=== PATIENT | female | born 1965 | race Caucasian/White ===

== ENCOUNTER 2019-07-18 08:56 | Outpatient (RCR) | payer BC, SELFPAY ==
[2019-07-18 09:34] LABS: Basophils Absolute Auto 0.1 K/mm3 (0.0-0.1); Basophils Percent Auto 0.8 % (0.2-1.2); Eosinophils Absolute Auto 0.3 K/mm3 (0-0.3); Eosinophils Percent Auto 3.6 % (0-4.4); Hematocrit 30.8 % (37.0-47.0); Hemoglobin 10.8 g/dL (12.0-15.0); Immature Granulocyte Absolute 0.04 K/mm3 (0.00-0.031); Immature Granulocyte Percent A 0.5 % (0-0.5); Lymphocytes Absolute Auto 3.13 K/mm3 (0.9-3.2); Lymphocytes Percent Auto 36.7 % (18.3-44.2); Mean Corpuscular HGB Conc 35.1 g/dl (32-36); Mean Corpuscular Hemoglobin 35.5 pg (26-34); Mean Corpuscular Volume 101.3 fl (80-100); Mean Platelet Volume 8.7 fl (7.4-10.4); Monocytes Absolute Auto 0.8 K/mm3 (0.1-0.6); Monocytes Percent Auto 9.7 % (2.6-8.5); Neutrophils Absolute Auto 4.2 K/mm3 (1.3-6.7); Neutrophils Percent Auto 48.7 % (45.5-73.1); Platelet Count Result 251 k/mm3 (150-375); Red Blood Count 3.04 M/mm3 (4.2-5.4); White Blood Count 8.5 K/mm3 (4.5-10.0)
[2019-07-18 13:11] LABS: Alanine Aminotransferase 17 U/L (4-35); Albumin Level 4.1 g/dL (3.5-5.1); Alkaline Phosphatase 49 U/L (38-126); Aspartate Amino Transferase 23 U/L (14-36); Bilirubin,Total 0.2 mg/dL (0.2-1.3); Blood Urea Nitrogen 39 mg/dL (7-17); Calcium 9.4 mg/dL (8.4-10.2); Carbon Dioxide 21 mmol/L (22-30); Chloride 102 mmol/L (98-107); Estimated Glomerular Filt Rate 34; Glucose 93 mg/dL (65-105); Potassium 4.2 mmol/L (3.4-5.0); Sodium 137 mmol/L (137-145)
[2019-07-20 07:23] LABS: CA 27.29 129 U/mL (<38)
== END 2019-10-16 23:59 | disposition home or self-care (01) ==
LOC: ANHLAB 08:56
PROVIDERS: PCP Family Medicine; Visit Provider Internal Medicine Hematology & Oncology
DX: C50.912 Malignant neoplasm of unspecified site of left female breast (principal); Z17.0 Estrogen receptor positive status [ER+]
CPT/HCPCS: 36415; 80053; 85025; 86300

== ENCOUNTER 2019-11-26 05:05 | Day surgery (SDC) | payer BC, SELFPAY ==
[2019-11-26] VITALS (17 sets, daily range): BP systolic 102–147; BP diastolic 49–95; PULSE 52–73; RESP 13–22; TEMP 36.3–36.5; O2SAT 93–100; BMI 31.0
[2019-11-26 09:09] LABS: Basophils Absolute Auto 0.1 K/mm3 (0.0-0.1); Basophils Percent Auto 1.5 % (0.2-1.2); Eosinophils Absolute Auto 0.1 K/mm3 (0-0.3); Eosinophils Percent Auto 2.9 % (0-4.4); Hematocrit 30.1 % (37.0-47.0); Hemoglobin 10.4 g/dL (12.0-15.0); Immature Granulocyte Absolute 0.03 K/mm3 (0.00-0.031); Immature Granulocyte Percent A 0.7 % (0-0.5); Lymphocytes Absolute Auto 1.97 K/mm3 (0.9-3.2); Lymphocytes Percent Auto 43.3 % (18.3-44.2); Mean Corpuscular HGB Conc 34.6 g/dl (32-36); Mean Corpuscular Hemoglobin 37.4 pg (26-34); Mean Corpuscular Volume 108.3 fl (80-100); Mean Platelet Volume 9.2 fl (7.4-10.4); Monocytes Absolute Auto 0.4 K/mm3 (0.1-0.6); Monocytes Percent Auto 7.7 % (2.6-8.5); Neutrophils Percent Auto 43.9 % (45.5-73.1); Platelet Count Result 287 k/mm3 (150-375); Red Blood Count 2.78 M/mm3 (4.2-5.4); Red Cell Distribution Width 14.3 % (11.5-14.5); White Blood Count 4.6 K/mm3 (4.5-10.0)
[2019-11-26 09:20] LABS: Blood Urea Nitrogen 29 mg/dL (7-17); Calcium 9.5 mg/dL (8.4-10.2); Carbon Dioxide 27 mmol/L (22-30); Chloride 104 mmol/L (98-107); Estimated CRCL calculation 37 ml/min; Estimated Glomerular Filt Rate 36; Glucose 110 mg/dL (65-105); Potassium 4.4 mmol/L (3.4-5.0); Sodium 136 mmol/L (137-145)
[2019-11-26 09:25] LABS: Anisocytosis 1+ (NORMAL); Ovalocytes 1+ (NORMAL); Platelet Estimate Adequate (Adequate)
--- NOTE | 2019-11-26 10:37 | WPDMODSED ---
Moderate Sedation Note-Pt Data Patient Data Diagnosis: Aortic valve stenosis Coronary artery disease with previous interventional revascularization of LAD and circumflex in 2009 Congestive heart failure with left ventricular systolic dysfunction Breast cancer Present Complaint: Shortness of breath Procedure to be performed/Plan: Right and left heart catheterization Allergies Allergy/AdvReac Type Severity Reaction Status Date / Time Sulfa (Sulfonamide Allergy Mild RASH Verified 12/14/18 11:05 Antibiotics) sulfamethoxazole Allergy Mild RASH Verified 12/14/18 11:05 sulfamethizole Allergy Unknown Verified 05/30/17 14:39 trimethoprim Allergy Unknown Verified 05/30/17 14:39 Home Medications Medication Instructions Recorded Confirmed Type aspirin 81 mg PO DAILY 06/29/19 11/26/19 History atorvastatin 20 mg PO DAILY 06/29/19 11/26/19 History carvedilol 6.25 mg PO Q12H 06/29/19 11/26/19 History clopidogrel [Plavix] 75 mg PO DAILY 06/29/19 11/26/19 History furosemide 20 mg PO BID 06/29/19 11/26/19 History letrozole 2.5 mg PO QAM 06/29/19 11/26/19 History lisinopril 10 mg PO DAILY 06/29/19 11/26/19 History potassium chloride 20 meq PO BID 06/29/19 11/26/19 History sertraline 50 mg PO DAILY 06/29/19 11/26/19 History palbociclib [Ibrance] 125 mg PO DAILY 09/18/19 11/26/19 History Current Medications: Active Medications Sodium Chloride (Normal Saline Iv) 500 mls @ 100 mls/hr IV CONT .Q5H KONG Sedation/Anesthesia: No previous sedation/anesthesia problems (including family history). [facility] Social History Social History Smoking status: Former smoker Second hand tobacco smoke exposure: No Smoking end date: 09/12/90 Alcohol intake: never Gender identity (if verbalized by the patient): Female Mod Sed Physical Exam Physical Exam Pre Procedural Exam: Normal: Neck, Throat, Airway, Lungs, Heart Size, Heart Rate, Heart Rhythm, Neuro Exam and Extremities and Variation: Appearance (Ill-appearing white female no apparent distress) Hours since solid foods: 14 Hours since liquid intake: 14 Internal Medicine - PN: Obj Da Vital Signs Vital Signs: Vital Signs - 24 hr 11/26/19 09:21 Temperature 36.3 C L Pulse Rate 52 L Respiratory Rate 18 Blood Pressure 125/68 Pulse Oximetry 97 Meds/Results Medications: Active Medications Generic Name Dose Route Start Last Admin Trade Name Kamari PRN Reason Stop Dose Admin Sodium Chloride 500 mls @ 100 mls/hr 11/26/19 06:00 Normal Saline Iv IV CONT .Q5H KONG Labs CBC & Chem 7: 11/26/19 08:47 11/26/19 08:47 Labs: Laboratory Results - last 24 hr 11/26/19 11/26/19 08:47 08:47 WBC 4.6 RBC 2.78 L Hgb 10.4 L Hct 30.1 L MCV 108.3 H MCH 37.4 H MCHC 34.6 RDW 14.3 Plt Count 287 D MPV 9.2 Immature Gran % (Auto) 0.7 H Neut % (Auto) 43.9 L Lymph % (Auto) 43.3 [place] % (Auto) 7.7 Eos % (Auto) 2.9 Baso % (Auto) 1.5 H Lymph # (Auto) 1.97 [place] # (Auto) 0.4 Eos # (Auto) 0.1 Baso # (Auto) 0.1 Abs Immat Gran (auto) 0.03 Absolute Neuts (auto) 2.0 Absolute Nucleated RBC 0.0 Nucleated RBC % 0.0 Platelet Estimate Adequate Anisocytosis 1+ Ovalocytes 1+ Sodium 136 L Potassium 4.4 Chloride 104 Carbon Dioxide 27 BUN 29 H Creatinine 1.50 H Estim Creat Clear Calc 37 Estimated GFR 36 L Glucose 110 H Calcium 9.5 ASA Classification/Sedation ASA Classification/Sedation ASA Class: II Emergent: No Risks: Risks, benefits and alternatives explained and patient/family accepted plan for sedation. Patient re-evaluated immediately prior to sedation.
--- NOTE | 2019-11-26 11:47 | WPDCARDPROC ---
Cardiac Cath Procedure Note Date of procedure:: 11/26/19 Performing physician:: Sammy Mckeon MD Indication:: 53-year-old patient with coronary artery disease, aortic valve stenosis and increasing symptoms of OLSON. Echocardiogram demonstrates severe aortic valve stenosis and recent admission with CHF and evidence of decline in LV systolic function. Unfortunate comorbidity of metastatic breast cancer Brief clinical history:: 3-year-old patient as detailed above with previous PCI to the mid LAD and proximal circumflex. Patient has been followed clinically in the office and has been now reporting symptoms of OLSON and has echocardiographic evidence stenosis as well as reduced left ventricular systolic function. Procedure Procedure performed:: Right and left heart catheterization Sedation/Medication given:: fentanyl 50 mg Versed 2 mg case start time 11:03 a.m. case end time 11:41 a.m. sedation provided by Diony Nielson Rn, trained observer Access site:: right femoral artery, right femoral vein Estimated blood loss:: 20-30 cc Procedure note:: patient brought to the cardiac catheterization lab in postabsorptive state where the femoral triangle was prepped and draped in the usual fashion. Anesthesia was provided with 1% lidocaine infiltrated locally. Using the modified Seldinger technique a 7 Greenlandic sheath was placed into the femoral vein and a 6 Greenlandic sheath into the femoral artery. Following this right heart catheterization was carried out. A balloon tip Summit-Dinesh catheter was used demonstrate right-sided hemodynamics and to sample a AV O2 difference. Thermodilution cardiac outputs were also sampled. Following this the Summit-Dinesh catheter was removed. A double 6 Greenlandic angle pigtail catheter was placed into the arterial circulation into the ascending aorta. Both lumens were connected to pressure transducer is flushed carefully, both lumens were flushed carefully and simultaneouspressures were recorded both the vent found to be identical. a straight wire was then placed into the distal lumen and used to probe the stenotic aortic valve the left ventricle was entered and the catheter was placed over the wire into the body of the LV. The lumens were then reflushed and we zeroed and Simultaneousleft ventricle/ central aortic pressures were demonstrated and aortic valve area was calculated. following this the same catheter was used to inject the left ventriculogram in the WEBB projection. A pullback was then demonstrated across the stenotic aortic valve. The pigtail catheter was then removed. Coronary angiography was then performed using standard 5 Greenlandic FL4 and JR4 diagnostic coronary catheters. Following this procedure was terminated angiogram was done of the femoral artery through the sheath after which it was determined that the sheath will be removed manually with manual pressure in the holding area. She left the cleaning laborer with no evidence of any procedural complications and no sign of a groin hematoma. Findings:: Hemodynamics: Right atrial pressure 3 mmHg right ventricle RV 34/0 end-diastolic2. Pulmonary artery 35/4. wedge pressure 10. left ventricle 190 over 3 end-diastolic pressure 12. Central aorta 152 over 62. Mean aortic valve gradient is 35 point mmHg valve area 0.89 cm2 cardiac output 5.27 liters/minute giving an index of 2.96 the left ventricle is modestly enlarged there is moderate global systolic dysfunction identified global ejection fraction appears to be 35-40% by visual estimation no apparent regional wall motion abnormalities the left main coronary artery is medium in caliber and is nicely patent the LAD is medium to small caliber vessel going down to the apex. There is a stent in the midportion of the LAD in in this segment there is 99% diffuse stenosis. Despite this there is angiographically MIKEY 3 flow in the vessel. Circumflex is a medium caliber vessel with visible stent material in the proximal segmen
--- NOTE | 2019-11-26 12:16 | SUR.PHASEII ---
[id number] Patient returns to [facility] room [address] post R&LHC with Dr. Mckeon. at bedside, instructed on bedrest, and restrictions. 6 Fr sheath remains in RFA, 7 Fr sheath remains in RFV. No bleeding or hematoma noted, will continue to monitor.
--- NOTE | 2019-11-26 20:32 | SUR.PHASEII ---
11/26/19: 2005: PATIENT DRESSED SELF WITHOUT ASSISTANCE. RT GROIN SITE IS CLEAN AND DRY. NO HEMATOMA OR BLEEDING NOTED. PULSES PALPATED GOOD.
--- NOTE | 2019-11-26 20:35 | SUR.PHASEII ---
11/26/19: 2009: DETAILED DISCHARGE INSTRUCTIONS GIVEN TO PATIENT. PATIENT VERBALIZED AN UNDERSTANDING OF THESE INSTRUCTIONS.
--- NOTE | 2019-11-26 20:36 | SUR.PHASEII ---
11/26/19: 2015: PATIENT DISCHARGED TO HOME VIA WHEELCHAIR.
== END 2019-11-26 20:15 | disposition home or self-care (01) ==
PROVIDERS: PCP Family Medicine; Visit Provider Specialist
PROC: 4A023N8 Measurement of Cardiac Sampling and Pressure, Bilateral, Percutaneous Approach (ICD-10-PCS; CPT 93453; principal; 2019-11-26 10:00)
DX: I25.10 Atherosclerotic heart disease of native coronary artery without angina pectoris (principal); I35.0 Nonrheumatic aortic (valve) stenosis; I50.22 Chronic systolic (congestive) heart failure; R93.1 Abnormal findings on diagnostic imaging of heart and coronary circulation; C50.919 Malignant neoplasm of unspecified site of unspecified female breast; Z95.5 Presence of coronary angioplasty implant and graft; Z87.891 Personal history of nicotine dependence
CPT/HCPCS: 36415; 80048; 85025; 93460; C1769; C1887; C1894; J1644; J2250; J3010; J7040

== ENCOUNTER 2020-01-21 07:53 | Outpatient (CLI) | payer BC, SELFPAY ==
--- NOTE | ~2020-01-21 | NM_ITS ---
EXAMINATION: NM bone scan whole body DATE: 01/21/2020 11:10 INDICATION: Malignant neoplasm of left breast in female, estrogen receptor positive. TECHNIQUE: 25.8 mCi Tc-99m HDP was administered intravenously. Delayed whole-body scintigrams were o btained. COMPARISON: Bone scan 09/17/2019, chest CT 01/21/2020 FINDINGS: There is increased activity in the sternum and head of right clavicle correlating with scle rotic lesions by CT. There is joint-centered increased activity in the right knee without radiographi c comparison, likely osteoarthritis. IMPRESSION: 1. Unchanged distribution of increased activity in the sternum and head of right clavicle correlating with sclerotic lesions by CT, consistent with metastatic disease. Reviewed, dictated and finalized at location A. IMPRESSION: 1. Unchanged distribution of increased activity in the sternum and head of righ t clavicle correlating with sclerotic lesions by CT, consistent with metastatic disease.
--- NOTE | ~2020-01-21 | CT_ITS ---
EXAMINATION:CT chest w con DATE: 01/21/2020 08:50 INDICATION: Malignant neoplasm of left breast in female, estrogen receptor positive. TECHNIQUE: Computed tomography (CT) of the chest was performed with 75 mL Omnipaque 350 intravenous c ontrast. Automated exposure control and iterative reconstruction technique were employed. The dose-le ngth product (DLP) was 249.92 mGy-cm. COMPARISON: Chest CT 09/17/2019, 12/14/2018 FINDINGS: There are widespread peripheral reticular opacities and groundglass opacities in the lungs with architectural distortion. No bronchiectasis or honeycombing. There is a 5 mm nodule in left lowe r lobe, stable from 12/14/2018. No pleural effusion. The heart size is normal. There are coronary arter y calcifications. There are calcifications of the aortic valve. No pericardial effusion. A right para tracheal node measures 24 x 12 mm, stable from 09/17/2019 and improved from 12/14/2018. There are bilater al mastectomies. There are sclerotic lesions in the sternum, head of right clavicle, and T7 and T11 v ertebral bodies. IMPRESSION: 1. Stable bone lesions and enlarged mediastinal lymph node, consistent with metastatic disease. 2. Stable pulmonary nodule, which may be granulomatous disease or metastatic disease. 3. Chronic interstitial lung disease in a pattern of nonspecific interstitial pneumonia (NSIP). Reviewed, dictated and finalized at location A. IMPRESSION: 1. Stable bone lesions and enlarged mediastinal lymph node, consistent with met astatic disease. 2. Stable pulmonary nodule, which may be granulomatous disease or metastatic di sease. 3. Chronic interstitial lung disease in a pattern of nonspecific interstitial p neumonia (NSIP).
[2020-01-21 08:25] LABS: Estimated Glomerular Filt Rate 36
== END 2020-01-21 07:54 | disposition home or self-care (01) ==
PROVIDERS: PCP Family Medicine; Visit Provider Internal Medicine Hematology & Oncology
DX: C50.912 Malignant neoplasm of unspecified site of left female breast (principal); Z17.0 Estrogen receptor positive status [ER+]; R93.7 Abnormal findings on diagnostic imaging of other parts of musculoskeletal system; R91.1 Solitary pulmonary nodule; J84.9 Interstitial pulmonary disease, unspecified
CPT/HCPCS: 36415; 71260; 78306; A9561; Q9967

== ENCOUNTER 2020-06-18 10:58 | Outpatient (CLI) | payer BC, SELFPAY ==
--- NOTE | ~2020-06-18 | NM_ITS ---
EXAMINATION: NM bone scan whole body DATE: 06/18/2020 14:19 INDICATION: Malignant neoplasm of the left breast. TECHNIQUE: 22.7 mCi Tc-99m HDP was administered intravenously. Delayed whole-body scintigrams were o btained. COMPARISON: Bone scan dated 01/21/2020 and 05/01/[address] chest dated 06/18/2020 FINDINGS: Again seen is increased activity in the sternum, manubrium and at the medial head of the right clavic le with corresponding sclerotic lesions on CT. Unchanged focus of increased uptake at the right maxil la which can be seen dating back to earlier bone scan dated 05/01/2019. New tiny focus of mild increas ed uptake anteriorly at the L4 vertebral body without evident correlate on PET/CT dated 01/04/2019. No more recent cross sectional imaging for comparison. Unchanged likely degenerative joint centered upt gerard at the right knee and at the radial side of the left wrist. IMPRESSION: 1. New tiny focus of mild increased uptake at the L4 vertebral body raising suspicion for metastatic disease. 2. No interval change in regions of likely metastatic increased bone uptake with associated sclerosis on CT located at the manubrium, sternum and medial head of the right clavicle. 3. Unchanged small focus of increased uptake at the right maxilla which could be related either denta l disease or metastatic disease. Reviewed, dictated and finalized at location A. IMPRESSION: 1. New tiny focus of mild increased uptake at the L4 vertebral body raising zabrina picion for metastatic disease. 2. No interval change in regions of likely metastatic increased bone uptake wit h associated sclerosis on CT located at the manubrium, sternum and medial head of the right clavicle. 3. Unchanged small focus of increased uptake at the right maxilla which could b e related either dental disease or metastatic disease.
--- NOTE | ~2020-06-18 | CT_ITS ---
EXAMINATION: CT chest w con DATE: 06/18/2020 11:38 INDICATION: Left breast cancer TECHNIQUE: Transaxial computed tomographic images of the chest were obtained after the administration of 75 cc of Omnipaque 350 intravenous contrast. The dose-length product (DLP) was 195.88 mGy-cm. Ite rative reconstruction was used. COMPARISON: 01/21/2020 FINDINGS: There is a stable 5 mm nodule in the left lower lobe. There are stable subpleural reticular and groundglass opacities in the lungs. No superimposed acute airspace opacities are identified. The re is no pleural effusion or pneumothorax. The heart size is normal. There are changes of bilateral m astectomy and left axillary lymph node dissection. A 2.4 x 1.3 cm right paratracheal lymph node is un changed in size. No new thoracic lymphadenopathy is identified. Sclerotic metastases are noted in the sternum, the head of the right clavicle, and in the T7, T11, and L1 vertebral bodies. There are torrez ges of interval endoluminal aortic valve repair. IMPRESSION: 1. Stable metastatic bone lesions and enlarged mediastinal lymph node. 2. Chronic interstitial lung disease in a pattern of nonspecific interstitial pneumonia (NSIP). 3. Stable left lower lobe nodule, granulomatous disease versus metastatic disease. Reviewed, dictated and finalized at location A. IMPRESSION: 1. Stable metastatic bone lesions and enlarged mediastinal lymph node. 2. Chronic interstitial lung disease in a pattern of nonspecific interstitial p neumonia (NSIP). 3. Stable left lower lobe nodule, granulomatous disease versus metastatic disea se.
== END 2020-06-18 10:59 | disposition home or self-care (01) ==
PROVIDERS: PCP Family Medicine; Visit Provider Internal Medicine Hematology & Oncology
DX: C50.912 Malignant neoplasm of unspecified site of left female breast (principal); Z17.0 Estrogen receptor positive status [ER+]; J84.9 Interstitial pulmonary disease, unspecified; R91.1 Solitary pulmonary nodule
CPT/HCPCS: 71260; 78306; A9561; Q9967

== ENCOUNTER 2020-08-11 07:30 | Outpatient (RCR) | payer BC, SELFPAY ==
[2020-05-20 08:49] VITALS: PULSE 61
--- NOTE | 2020-05-27 13:43 | PCCPR ---
Covid exposure Britney called states she was explosed to covid at work. 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 She states she has wore the mask at all times. It is standard they get covid tested each week at the senior care. She thinks it will be a few days until she is aware of results. She is also asymptomatic. Explained if she is without symptoms and wears her mask the entire time she is here she may come back, unless she comes back positive.
== END 2020-08-11 18:56 | disposition home or self-care (01) ==
LOC: ANHCPREHAB 07:30
PROVIDERS: PCP Family Medicine
DX: Z95.2 Presence of prosthetic heart valve (principal)
CPT/HCPCS: 93798

== ENCOUNTER 2020-08-14 07:24 | Outpatient (CLI) | payer BC, SELFPAY ==
--- NOTE | ~2020-08-14 | NM_ITS ---
EXAMINATION: NM bone scan whole body DATE: 08/14/2020 10:23 INDICATION: Malignant neoplasm of left breast. TECHNIQUE: 25.7 mCi Tc-99m HDP was administered intravenously. Delayed whole-body scintigrams were o btained. COMPARISON: Chest CT 06/18/2020, bone scan 06/18/2020 FINDINGS: There is increased activity in the sternum and medial right clavicle with interval improvem ent correlating with sclerotic lesions by CT. Again seen are multiple small foci of increased activit y in the spine correlating with sclerotic lesions by CT. IMPRESSION: 1. Multiple bone lesions of increased activity with interval improvement, consistent with metastatic disease. Reviewed, dictated and finalized at location A. MBLY CLEANER IMPRESSION: 1. Multiple bone lesions of increased activity with interval improvement, consi stent with metastatic disease.
== END 2020-08-14 07:25 | disposition home or self-care (01) ==
PROVIDERS: PCP Family Medicine; Visit Provider Internal Medicine Hematology & Oncology
DX: C50.912 Malignant neoplasm of unspecified site of left female breast (principal); Z17.0 Estrogen receptor positive status [ER+]
CPT/HCPCS: 78306; A9561

== ENCOUNTER 2020-11-24 09:47 | Outpatient (CLI) | payer BC, SELFPAY ==
--- NOTE | ~2020-11-24 | CT_ITS ---
EXAMINATION: CT diagnostic chest w con EXAM DATE: 11/24/2020 10:34 INDICATION: Left-sided breast cancer. TECHNIQUE: Spiral CT of the chest following intravenous injection of 75 mL Omnipaque 350. Axial, cor onal and sagittal images were reviewed. Coronal maximum intensity pixel images of chest reviewed. Klaudia garcia dose-length product (DLP) for this examination was 253.34 mGy-cm. The exposure was tailored accor ding to patient size (auto mA exposure control), and iterative reconstruction (ASIR) was used as darrin tional dose reduction technique. Comparison is made to prior examination from 06/18/2020. FINDINGS: There is moderate amount of irregular septal thickening seen with peripheral bibasilar pred ominance and areas of groundglass opacity, with slight interval progression. This is consistent with Nonspecific Interstitial Pneumonitis (NSIP) pattern interstitial lung disease with many possible unde rlying etiologies including collagen vascular disease, medications/drugs, prior viral infection, hype rsensitivity pneumonitis, idiopathic etiologies. Mediastinal lymph nodes are stable or decreased in size, largest in the precarinal region measuring a bout 2.2 x 1.1 cm. There are surgical changes from left-sided mastectomy. Left basilar nodule measure s about 4 mm, unchanged and probably granuloma. Tracheobronchial tree is patent. There is no pneum othorax. There is mild cardiomegaly. There is aortic valve repair. No central pulmonary emboli. Up per abdomen is unremarkable. Sternum and manubrium completely sclerotic and several thoracic osteobla stic lesions are identified, are unchanged. IMPRESSION: 1. Moderate NSIP pattern interstitial lung disease, slight progression. 2. Stable mediastinal lymph nodes and left basilar nodule. 3. Stable osteoblastic disease. Reviewed, dictated and finalized at location A.
--- NOTE | ~2020-11-24 | NM_ITS ---
EXAMINATION: NM bone scan whole body DATE: 11/24/2020 12:34 INDICATION: Malignant neoplasm of the left breast TECHNIQUE: 23.6 mCi Tc-99m HDP was administered intravenously. Delayed whole-body scintigrams were o btained. COMPARISON: Bone scan dated 08/14/2020 and 05/01/[address] dated 11/24/2020 FINDINGS: Persistent mild increased uptake at the sternum, manubrium and medial head of the right clavicle with corresponding sclerosis on CT consistent with chronic treated metastatic disease. Persistent mild viviana int centered uptake at the lateral compartment of the right knee and at the radial aspect of the left carpus, likely degenerative osteoarthritis. Additional mild uptake at the right-sided facet joints i n the mid to upper cervical spine with corresponding facet osteoarthritis evident on brain MRI dated 01/04/2019. Unchanged small focus of mild increased uptake at the right maxilla likely related to dent al disease. IMPRESSION: 1. Stable appearance of mild uptake at the sternum, manubrium and medial head of the right clavicle w ith associated sclerosis on prior CT imaging consistent with chronic metastatic disease. Reviewed, dictated and finalized at location B. IMPRESSION: 1. Stable appearance of mild uptake at the sternum, manubrium and medial head o f the right clavicle with associated sclerosis on prior CT imaging consistent w ith chronic metastatic disease.
== END 2020-11-24 09:48 | disposition home or self-care (01) ==
PROVIDERS: PCP Family Medicine; Visit Provider Internal Medicine Hematology & Oncology
DX: C50.912 Malignant neoplasm of unspecified site of left female breast (principal); Z17.0 Estrogen receptor positive status [ER+]
CPT/HCPCS: 71260; 78306; A9561; Q9967

== ENCOUNTER 2021-04-14 09:14 | Outpatient (CLI) | payer BC, SELFPAY ==
--- NOTE | ~2021-04-14 | CT_ITS ---
EXAMINATION: CT diagnostic chest w con DATE: 04/14/2021 09:49 INDICATION: Metastatic breast cancer TECHNIQUE: Transaxial computed tomographic images of the chest were obtained after the administration of 75 cc of Omnipaque 350 intravenous contrast. The dose-length product (DLP) was 188.56 mGy-cm. Ite rative reconstruction was used. COMPARISON: 11/24/2020 FINDINGS: There is a stable 4 mm nodule of the left lower lobe. Subpleural reticular and groundglass opacities persist in both lungs without significant change. There is no pleural effusion or pneumotho rax. There is an unchanged right lower paratracheal lymph node measuring 2.3 x 1.1 cm. The heart size is normal. There are stable sclerotic osseous metastases of the sternum, head of the right clavicle, and in the T7 and T11 vertebral bodies. IMPRESSION: 1. Stable osseous metastatic disease and stable enlarged mediastinal lymph node. 2. Stable nodule of the left lower lobe. 3. Unchanged chronic interstitial lung disease in a pattern of nonspecific interstitial pneumonia (NS IP). Reviewed, dictated and finalized at location A. IMPRESSION: 1. Stable osseous metastatic disease and stable enlarged mediastinal lymph node . 2. Stable nodule of the left lower lobe. 3. Unchanged chronic interstitial lung disease in a pattern of nonspecific inte rstitial pneumonia (NSIP).
--- NOTE | ~2021-04-14 | NM_ITS ---
EXAMINATION: NM bone scan whole body DATE: 04/14/2021 13:54 INDICATION: Malignant neoplasm of left breast in female. TECHNIQUE: 22.4 mCi Tc-99m HDP was administered intravenously. Delayed whole-body scintigrams were o btained. COMPARISON: Chest CT 04/14/2021, Bone scan 11/24/2020 FINDINGS: There is increased activity in right knee and left wrist without radiographic comparison, l ikely osteoarthritis. There is increased activity in the sternum and head of right clavicle IMPRESSION: 1. Stable distribution of increased activity in the sternum and head of right clavicle correlating wi th sclerotic lesions by CT, consistent with metastatic disease. Reviewed, dictated and finalized at location A. IMPRESSION: 1. Stable distribution of increased activity in the sternum and head of right c lavicle correlating with sclerotic lesions by CT, consistent with metastatic di sease.
== END 2021-04-14 09:15 | disposition home or self-care (01) ==
LOC: ANHIMG 09:20
PROVIDERS: PCP Family Medicine; Visit Provider Internal Medicine Hematology & Oncology
DX: C50.912 Malignant neoplasm of unspecified site of left female breast (principal); Z17.0 Estrogen receptor positive status [ER+]; R91.8 Other nonspecific abnormal finding of lung field; J84.9 Interstitial pulmonary disease, unspecified
CPT/HCPCS: 71260; 78306; A9561; Q9967

== ENCOUNTER 2021-09-23 07:32 | Outpatient (CLI) | payer BC, SELFPAY ==
--- NOTE | ~2021-09-23 | NM_ITS ---
EXAMINATION: NM bone scan whole body DATE: 09/23/2021 12:34 INDICATION: Malignant neoplasm of left breast in female. TECHNIQUE: 24.2 mCi Tc-99m HDP was administered intravenously. Delayed whole-body scintigrams were o btained. COMPARISON: Chest CT 09/23/2021, 04/14/2021, bone scan 04/14/2021 FINDINGS: There is increased activity in the sternum and head of right clavicle. There is joint-cente red increased activity in the shoulders and knees, consistent with osteoarthritis. IMPRESSION: 1. Stable distribution of increased activity in the sternum and head of right clavicle correlating wi th sclerotic lesions by CT, consistent with metastatic disease. Reviewed, dictated and finalized at location B. LE GRADER IMPRESSION: 1. Stable distribution of increased activity in the sternum and head of right c lavicle correlating with sclerotic lesions by CT, consistent with metastatic di sease.
--- NOTE | ~2021-09-23 | CT_ITS ---
EXAMINATION: CT diagnostic chest w con EXAM DATE: 09/23/2021 08:21 INDICATION: Malignant Neoplasm Of Left Breast In Female . TECHNIQUE: Spiral CT of the chest following intravenous injection of 75 mL Omnipaque 350. Axial, cor onal and sagittal images of the chest were reviewed. Coronal maximum intensity pixel images of chest reviewed. The dose-length product (DLP) for this examination was 228.13 mGy-cm. The exposure was t ailored according to patient size (auto mA exposure control), and iterative reconstruction (ASIR) was used as additional dose reduction technique. Comparison is made to prior examination from 04/14/2021. FINDINGS: There is moderate irregular septal thickening seen with peripheral bibasilar predominance a nd areas of groundglass opacity. Likely chronic process, consistent with Nonspecific Interstitial P neumonitis (NSIP) pattern interstitial lung disease with many possible underlying etiologies includin g collagen vascular disease, medications/drugs, prior viral infection (COVID-19), hypersensitivity pn eumonitis, idiopathic etiologies. This is slightly more pronounced than on prior study. Left basilar 4 mm nodule reidentified on image 85, unchanged consistent with granuloma. There are no pleural or pericardial effusions. Tracheobronchial tree is patent. Precarinal lymph node is mildl y enlarged, but stable in size, as are the other smaller mediastinal lymph nodes. No central pulmonar y emboli. There is no pneumothorax. There is mild cardiomegaly. There is aortic valve replacement. Probable coronary artery stents. Upper abdomen is unremarkable. Sternal and manubrial osteoblast ic disease, several smaller rib, vertebral thoracic osseous metastatic lesions unchanged. Surgical ch anges from left mastectomy, left axillary lymph node dissection. IMPRESSION: 1. Stable precarinal lymphadenopathy. 2. Stable osteoblastic disease. 3. Moderate interstitial lung disease stable or minimal progression. 4. Left lower lobe granuloma. Reviewed, dictated and finalized at location A. [employer]
[2021-09-23 08:10] LABS: Estimated Glomerular Filt Rate 46
== END 2021-09-23 07:33 | disposition home or self-care (01) ==
PROVIDERS: PCP Family Medicine; Visit Provider Internal Medicine Hematology & Oncology
DX: C50.912 Malignant neoplasm of unspecified site of left female breast (principal); Z17.0 Estrogen receptor positive status [ER+]; M89.9 Disorder of bone, unspecified; R59.0 Localized enlarged lymph nodes; J84.9 Interstitial pulmonary disease, unspecified; J84.10 Pulmonary fibrosis, unspecified
CPT/HCPCS: 71260; 78306; A9561; Q9967

== ENCOUNTER 2022-01-25 08:27 | Outpatient (CLI) | payer BC, SELFPAY ==
--- NOTE | ~2022-01-25 | CT_ITS ---
EXAMINATION: CT diagnostic chest w con DATE: 01/25/2022 08:59 INDICATION: Malignant neoplasm of the left breast TECHNIQUE: Transaxial computed tomographic images of the chest were obtained after the administration of 75 cc of Omnipaque 300 intravenous contrast. The dose-length product (DLP) was 181.08 mGy-cm. Ite rative reconstruction was used. COMPARISON: 09/23/2021 FINDINGS: There is a stable 4 mm nodule of the left lower lobe. There is no pleural effusion or pneum othorax. Subpleural reticular and groundglass opacities persist throughout both lungs without signifi cant change. No honeycombing is identified. The heart size is normal. There is a stable enlarged prec arinal lymph node. Changes of endoluminal aortic valve repair are noted. There is stable osseous meta static disease. There are changes of bilateral mastectomy with left axillary lymph node dissection. IMPRESSION: 1. Stable osseous metastatic disease and stable large precarinal lymph node. 2. Chronic interstitial lung disease in a pattern of nonspecific interstitial pneumonia (NSIP), stabl e. Reviewed, dictated and finalized at location A. IMPRESSION: 1. Stable osseous metastatic disease and stable large precarinal lymph node. 2. Chronic interstitial lung disease in a pattern of nonspecific interstitial p neumonia (NSIP), stable.
--- NOTE | ~2022-01-25 | NM_ITS ---
EXAMINATION: NM bone scan whole body DATE: 01/25/2022 13:22 INDICATION: Left breast cancer TECHNIQUE: 24.7 mCi Tc-99m HDP was administered intravenously. Delayed whole-body scintigrams were o btained. COMPARISON: 09/23/2021 FINDINGS: Mild likely degenerative joint centered uptake at the bilateral knees and sacral joints, the radial a spect of the left carpus and at the sternomanubrial articulation. No suspicious foci of abnormal bone uptake to suggest metastatic disease. IMPRESSION: 1. No evident metastatic disease. Reviewed, dictated and finalized at location A.
[2022-01-25 08:52] LABS: Estimated Glomerular Filt Rate 36
== END 2022-01-25 08:28 | disposition home or self-care (01) ==
PROVIDERS: PCP Family Medicine; Visit Provider Internal Medicine Hematology & Oncology
DX: C50.912 Malignant neoplasm of unspecified site of left female breast (principal); C79.51 Secondary malignant neoplasm of bone; Z17.0 Estrogen receptor positive status [ER+]; J84.9 Interstitial pulmonary disease, unspecified
CPT/HCPCS: 71260; 78306; A9561; Q9967

== ENCOUNTER 2022-01-26 09:03 | Outpatient (CLI) | payer BC, SELFPAY ==
[2022-01-26 09:57] LABS: Basophils Absolute Auto 0.1 K/mm3 (0.0-0.1); Eosinophils Absolute Auto 0.1 K/mm3 (0-0.3); Eosinophils Percent Auto 2.7 % (0-4.4); Hematocrit 32.7 % (37.0-47.0); Hemoglobin 11.5 g/dL (12.0-15.0); Immature Granulocyte Absolute 0.01 K/mm3 (0.00-0.031); Immature Granulocyte Percent A 0.2 % (0-0.5); Lymphocytes Absolute Auto 1.24 K/mm3 (0.9-3.2); Lymphocytes Percent Auto 25.7 % (18.3-44.2); Mean Corpuscular HGB Conc 35.2 g/dl (32-36); Mean Corpuscular Volume 110.8 fl (80-100); Mean Platelet Volume 10.2 fl (7.4-10.4); Monocytes Absolute Auto 0.4 K/mm3 (0.1-0.6); Monocytes Percent Auto 8.9 % (2.6-8.5); Neutrophils Percent Auto 61.5 % (45.5-73.1); Platelet Count Result 156 k/mm3 (150-375); Red Blood Count 2.95 M/mm3 (4.2-5.4); Red Cell Distribution Width 13.7 % (11.5-14.5); White Blood Count 4.8 K/mm3 (4.5-10.0)
[2022-01-26 10:05] LABS: Platelet Estimate Adequate (Adequate)
[2022-01-26 10:06] LABS: Atypical Lymphocytes Present
[2022-01-26 12:41] LABS: Alanine Aminotransferase 19 U/L (6-35); Albumin Level 4.1 g/dL (3.5-5.1); Alkaline Phosphatase 40 U/L (38-126); Anion Gap 10 mmol/L (8-16); Aspartate Amino Transferase 27 U/L (14-36); Bilirubin,Total 0.4 mg/dL (0.2-1.3); Blood Urea Nitrogen 27 mg/dL (7-17); Calcium 8.7 mg/dL (8.4-10.2); Carbon Dioxide 22 mmol/L (22-30); Chloride 105 mmol/L (98-107); Estimated Glomerular Filt Rate 46; Glucose 138 mg/dL (65-110); Sodium 137 mmol/L (137-145)
[2022-01-26 12:55] LABS: Vitamin D 25 Hydroxy 54.5 ng/mL
[2022-01-26 13:38] LABS: Hemoglobin A1C 5.3 % (<5.7)
[2022-01-29 04:56] LABS: CA 15-3 33 U/mL (<32)
== END 2022-01-26 09:04 | disposition home or self-care (01) ==
PROVIDERS: PCP Family Medicine; Visit Provider Internal Medicine Hematology & Oncology
DX: E55.9 Vitamin D deficiency, unspecified (principal); E11.9 Type 2 diabetes mellitus without complications
CPT/HCPCS: 36415; 80053; 82306; 83036; 85025; 86300

== ENCOUNTER 2022-05-26 08:02 | Outpatient (CLI) | payer BC, SELFPAY ==
--- NOTE | ~2022-05-26 | NM_ITS ---
EXAMINATION: NM bone scan whole body DATE: 05/26/2022 13:02 INDICATION: Left breast cancer. TECHNIQUE: 24.97 mCi Tc-99m HDP was administered intravenously. Delayed whole-body scintigrams were obtained. COMPARISON: Bone scan dated 01/25/2022 FINDINGS: Unchanged likely degenerative joint centered uptake at the lateral and to lesser degree medial compar tment of the right knee, patellofemoral compartment the left knee and at the radial aspect of the lef t carpus. Unchanged small focus of mild increased uptake in the right maxilla likely related to denta l disease. More atypical persistent subtle uptake at the sternum, manubrium and at the head of the ri ght clavicle where there is chronic sclerosis consistent with chronic metastatic disease. No addition al suspicious sclerotic lesions at the T11 and T7 vertebral bodies remain without discernible increas ed uptake. Unchanged focus of mild increased uptake at the right axilla likely related to dental dise ase. No new or increasing foci of uptake to suggest progression of metastatic disease. IMPRESSION: 1. Persistent subtle increased uptake at the sternum, near manubrium and head of the right clavicle w ith corresponding atypical sclerosis of the bones at these locations. There is no discernible abnorma l uptake associated with a couple additional suspicious sclerotic lesions at T11 and T7. Findings wou ld be consistent with chronic treated metastatic disease. No new or increasing foci to suggest progre ssion of disease. Reviewed, dictated and finalized at location A. IMPRESSION: 1. Persistent subtle increased uptake at the sternum, near manubrium and head o f the right clavicle with corresponding atypical sclerosis of the bones at thes e locations. There is no discernible abnormal uptake associated with a couple a dditional suspicious sclerotic lesions at T11 and T7. Findings would be consist ent with chronic treated metastatic disease. No new or increasing foci to sugge st progression of disease.
--- NOTE | ~2022-05-26 | CT_ITS ---
EXAMINATION: CT diagnostic chest w con DATE: 05/26/2022 08:52 INDICATION: Malignant neoplasm of the left breast TECHNIQUE: Transaxial computed tomographic images of the chest were obtained after the administration of 75 cc of Omnipaque 350 intravenous contrast. The dose-length product (DLP) was 154.65 mGy-cm. Ite rative reconstruction was used. COMPARISON: 01/25/2022 FINDINGS: There is a stable 4 mm nodule of the left lower lobe. Chronic subpleural reticular and grou ndglass opacities persist without significant change. No pleural effusion or pneumothorax. The heart size is normal. A mildly enlarged precarinal lymph node is stable. There are changes of endoluminal a ortic valve repair. There is stable osseous metastatic disease involving the sternum, head of the rig ht clavicle and the T7 and T11 vertebral bodies. IMPRESSION: 1. Stable osseous metastatic disease. 2. Stable chronic interstitial lung disease in a pattern of nonspecific interstitial pneumonia (NSIP) . Reviewed, dictated and finalized at location B. IMPRESSION: 1. Stable osseous metastatic disease. 2. Stable chronic interstitial lung disease in a pattern of nonspecific interst itial pneumonia (NSIP).
[2022-05-26 08:42] LABS: Estimated Glomerular Filt Rate 33
== END 2022-05-26 08:03 | disposition home or self-care (01) ==
PROVIDERS: PCP Family Medicine; Visit Provider Internal Medicine Hematology & Oncology
DX: C50.912 Malignant neoplasm of unspecified site of left female breast (principal); Z17.0 Estrogen receptor positive status [ER+]; C79.51 Secondary malignant neoplasm of bone; J18.8 Other pneumonia, unspecified organism
CPT/HCPCS: 71260; 78306; A9561; Q9967

== ENCOUNTER 2022-06-29 15:24 | Outpatient (CLI) | payer BC, SELFPAY ==
--- NOTE | ~2022-06-29 | XR_ITS ---
EXAM: XR wrist LT min 3V DATE: 06/29/2022 15:43 HISTORY: M25.532 - Pain in left wrist, GENERAL PAIN, NO INJURY, SWELL . COMPARISON: None available. FINDINGS: Normal mineralization. No fracture or dislocation. No lytic or blastic lesion. Ulnar negat nidhi variance. Severe narrowing, sclerosis, and osteophytosis at the trapeziometacarpal joint. Mild de generative change at the triscaphe joint.. No erosion or periosteal change. Soft tissues within wolf l limits. 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 Reviewed, dictated and finalized at location K.
== END 2022-06-29 15:25 | disposition home or self-care (01) ==
PROVIDERS: PCP Family Medicine; Visit Provider Nurse Practitioner
DX: M19.032 Primary osteoarthritis, left wrist (principal); R50.9 Fever, unspecified
CPT/HCPCS: 73110

== ENCOUNTER 2022-07-01 02:47 | Inpatient (IN) | payer BC, SELFPAY ==
[2022-07-01] VITALS (36 sets, daily range): BP systolic 101–150; BP diastolic 49–112; PULSE 72–123; RESP 16–38; TEMP 36.8–37.7; O2SAT 88–98; BMI 31.0
--- NOTE | 2022-07-01 | ECHO_ITS ---
Patient Info Name: Britney Cade Age: 56 years : 1965 Gender: Female Ht: 63 in Wt: 175 lbs BSA: 1.91 m2 HR: 119 bpm BP: 124 / 52 mmHg Heart Rhythm: Atrial Fibrillation Technical Quality: Fair Exam Date: 07/01/2022 3:53 PM Exam Location: [facility] Exam Room: [facility] Patient Status: Inpatient Admit Date: 07/01/2022 Staff Ordering Physician: Zandra Daniel MD [employer] Drawer In: Akiko Leonardo RDCS Attending Provider: Sammy López MD Referring Physician: Fredy ANDERSON; Exam Type: CA echo doppler color flow Study Info Indications - chf covid hx/o tavr breast ca Complete two-dimensional, color flow and Doppler transthoracic echocardiogram is performed. Summary 1. Complete two-dimensional, color flow and Doppler transthoracic echocardiogram is performed. 2. There is no regurgitation of the TAVR aortic valve. 3. Normal appearance and function of TAVR valve. 4. Left ventricular chamber dimension is mildly enlarged. 5. Left ventricular systolic function is mildly reduced, estimated at 40-45%. 6. Exam performed during atrial fibrillation with RVR. Left Ventricle Left ventricular chamber dimension is mildly enlarged. Left ventricular systolic function is mildly reduced, estimated at 40-45%. The left ventricular diastolic function is indeterminate. Right Ventricle Right ventricular chamber dimension is normal. Left Atria Left atrial chamber dimension is mildly enlarged. Right Atria Right atrial chamber dimension is normal. Aortic Valve There is no regurgitation of the TAVR aortic valve. Normal appearance and function of TAVR valve. Pulmonic Valve The pulmonic valve is not well visualized. Mitral Valve The mitral valve has normal leaflets. Tricuspid Valve The tricuspid valve leaflets are normal. Pericardium/Pleural The pericardium appears normal. Aorta The aortic root size at the sinus of Valsalva is normal. Left Ventricular Outflow Tract Name Value Normal LVOT 2D LVOT Diameter 2.0 cm LVOT Doppler LVOT Peak Gradient 5 mmHg LVOT Mean Gradient 3 mmHg LVOT VTI 16 cm LVOT VTI/AV VTI Ratio 0.4 LVOT Stroke Volume 48 ml LVOT CO 14.6 l/min LVOT CI 7.7 l/min/m2 Pulmonic Valve Name Value Normal PV Doppler PV Peak Gradient 3 mmHg Mitral Valve Name Value Normal MV Doppler MV Decel [place] 590 cm/s2 MV PHT
--- NOTE | ~2022-07-01 | XR_ITS ---
EXAMINATION: XR Abdomen [facility] DATE: 07/01/2022 15:39 INDICATION: Central line placement. TECHNIQUE: A supine view of the abdomen was obtained. COMPARISON: None. FINDINGS: There is a left lower limb peripherally inserted central venous catheter with tip in the in ferior vena cava at L3. There are surgical clips in left pelvis. There are no dilated loops of bowel. There are phleboliths in the pelvis. IMPRESSION: 1. Catheter tip in the inferior vena cava. Reviewed, dictated and finalized at location A.
--- NOTE | ~2022-07-01 | XR_ITS ---
EXAMINATION: XR chest 1V portable INDICATION: Weakness and confusion, history of breast cancer TECHNIQUE: Portable AP chest at 0338 hours COMPARISON: 01/10/2019 FINDINGS: Cardiomegaly is noted. There are changes of endoluminal aortic valve repair. Chronic inters titial opacities in the lungs are not significantly changed. No superimposed acute opacities are iden tified. No pleural effusion or pneumothorax. IMPRESSION: 1. Chronic interstitial lung disease without acute cardiopulmonary abnormality. 2. Cardiomegaly. Reviewed, dictated and finalized at location B.
--- NOTE | ~2022-07-01 | XR_ITS ---
EXAMINATION: XR chest 1V portable DATE: 07/04/2022 05:37 INDICATION: Congestive heart failure TECHNIQUE: frontal view of the chest was obtained. COMPARISON: Chest radiograph dated 07/03/2022 FINDINGS: No significant change in diffuse bilateral interstitial and airspace opacities relatively sparing the upper lung zones. No pleural effusion or pneumothorax. Cardiomegaly with change of prior coronary ar isaias stenting and aortic valve repair. IMPRESSION: 1. Unchanged opacities in bilateral mid and lower lung zones which could represent pulmonary edema or pneumonia. 2. Cardiomegaly. Reviewed, dictated and finalized at location A. IMPRESSION: 1. Unchanged opacities in bilateral mid and lower lung zones which could repres ent pulmonary edema or pneumonia. 2. Cardiomegaly.
--- NOTE | ~2022-07-01 | XR_ITS ---
EXAMINATION: XR chest 1V portable DATE: 07/05/2022 05:51 INDICATION: Mechanical ventilation TECHNIQUE: frontal view of the chest was obtained. COMPARISON: Chest radiograph dated 07/04/2022 FINDINGS: Endotracheal tube tip 5.0 cm above the tye. Nasogastric tube with proximal side-port in the body o f the stomach. Increase in interstitial and airspace opacities throughout both lungs. No pneumothorax or pleural eff usion. Cardiac silhouette is obscured. Coronary artery stenting and aortic valve repair. IMPRESSION: 1. Increasing bilateral lung disease which could represent worsening pulmonary edema, pneumonia or AR DS. Reviewed, dictated and finalized at location A. IMPRESSION: 1. Increasing bilateral lung disease which could represent worsening pulmonary edema, pneumonia or ARDS.
--- NOTE | ~2022-07-01 | XR_ITS ---
EXAMINATION: XR chest ET placement, XR abdomen NG/feed tube insert DATE: 07/04/2022 11:17 INDICATION: Intubation and orogastric tube placement TECHNIQUE: 1. Semierect AP view of the chest was obtained. 2. Semierect AP view of the abdomen was obtained. COMPARISON: Chest radiograph dated 07/04/2022 at 5:12 AM and KUB dated 07/01/2022 FINDINGS: Chest: Endotracheal tube tip 3.5 cm above the tye. Persistent airspace opacities throughout both lungs re latively sparing the apices. No pneumothorax or definitive pleural effusion. Cardiomegaly. Coronary a rtery stenting and aortic valve repair. Abdomen: Nasogastric tube tip in proximal side port in the body of the stomach. Left lower limb peripherally i nserted central venous catheter extends across the midline and then distally into the right common il iac vein. Small amount of gas in width and multiple nondilated loops of small bowel in a nonspecific nonobstructive bowel gas pattern. IMPRESSION: 1. Endotracheal tube and nasogastric tube in expected positions. A left lower extremity PICC line how ever has repositioned with distal tip now extending distally into the right common iliac vein. 2. Diffuse bilateral lung disease which could represent pulmonary edema and/or pneumonia. 3. Cardiomegaly. Reviewed, dictated and finalized at location A. IMPRESSION: 1. Endotracheal tube and nasogastric tube in expected positions. A left lower e xtremity PICC line however has repositioned with distal tip now extending dista lly into the right common iliac vein. 2. Diffuse bilateral lung disease which could represent pulmonary edema and/or pneumonia. 3. Cardiomegaly.
--- NOTE | ~2022-07-01 | US_ITS ---
EXAMINATION: US venous doppler [facility] DATE: 07/01/2022 13:40 INDICATION: Shortness of breath TECHNIQUE: Crawford scale images without and with compression and Doppler images of the bilateral lower e xtremity veins were obtained. COMPARISON: None FINDINGS: The right common femoral vein, profunda femoral vein, femoral vein, popliteal vein, peroneal trunk, p osterior tibial veins, and greater saphenous vein are patent. A right-sided Leblanc's cyst is noted. The left common femoral vein, profunda femoral vein, femoral vein, popliteal vein, peroneal trunk, po sterior tibial veins, and greater saphenous vein are patent. IMPRESSION: 1. Patent bilateral lower extremity veins. No evidence of deep venous thrombosis. Reviewed, dictated and finalized at location B. IMPRESSION: 1. Patent bilateral lower extremity veins. No evidence of deep venous thrombosi s.
--- NOTE | ~2022-07-01 | XR_ITS ---
EXAMINATION: XR chest 1V portable DATE: 07/03/2022 09:10 INDICATION: Shortness of breath TECHNIQUE: frontal view of the chest was obtained. COMPARISON: Chest radiograph dated 07/02/2022 FINDINGS: Slight decrease in the interstitial and airspace opacities in the bilateral mid and lower lung zones. No pleural effusion or pneumothorax. Cardiomegaly. A couple coronary artery stents. Aortic valve rep air. Surgical clips the left axilla. IMPRESSION: 1. Interval decrease in interstitial and airspace opacities in the bilateral mid and lower lung zones which could represent improving pulmonary edema and/or pneumonia. 2. Cardiomegaly. Reviewed, dictated and finalized at location A. IMPRESSION: 1. Interval decrease in interstitial and airspace opacities in the bilateral mi d and lower lung zones which could represent improving pulmonary edema and/or p neumonia. 2. Cardiomegaly.
--- NOTE | ~2022-07-01 | US_ITS ---
EXAMINATION: US retroperitoneal limited DATE: 07/04/2022 10:39 INDICATION: Renal failure TECHNIQUE: Multiple grayscale and Doppler ultrasound images of the kidneys were obtained. COMPARISON: None. FINDINGS: The right kidney measures 12 x 5.1 x 4.2 cm. The left kidney measures 10.2 x 4.8 x 4.7 cm. The kidneys demonstrate normal parenchymal echogenicity. There is no hydronephrosis. The bladder is d ecompressed by Thompson catheter. IMPRESSION: 1. Normal kidneys without hydronephrosis. Reviewed, dictated and finalized at location F.
--- NOTE | ~2022-07-01 | XR_ITS ---
EXAMINATION: XR chest 1V portable INDICATION: Shortness of breath TECHNIQUE: Portable AP chest at 0939 hours COMPARISON: 07/01/2022 FINDINGS: There are diffuse opacities in all lung zones with interval worsening. A left pleural effus ion is questioned. Cardiomegaly is noted. Changes of endoluminal aortic valve replacement are noted. There is no pneumothorax. Surgical clips are noted in the left axilla. IMPRESSION: 1. Diffuse lung disease with interval worsening, consistent with pneumonia and/or pulmonary edema. Reviewed, dictated and finalized at location B. IMPRESSION: 1. Diffuse lung disease with interval worsening, consistent with pneumonia and/ or pulmonary edema.
--- NOTE | ~2022-07-01 | XR_ITS ---
EXAMINATION: XR chest 1V portable DATE: 07/01/2022 14:32 INDICATION: Shortness of breath. TECHNIQUE: A single frontal view of the chest was obtained. COMPARISON: Chest single view at 3:38 AM, chest CT 05/26/2022 FINDINGS: The patient is rotated to her left. There are airspace and interstitial opacities in all ana lilia ng zones bilaterally, left worse than right. No pleural effusion or pneumothorax. The heart size is n ormal. There are changes of aortic valve replacement. There are surgical clips in left axilla. IMPRESSION: 1. Worsened diffuse lung disease, consistent with chronic interstitial lung disease with superimposed pulmonary edema versus pneumonia. Reviewed, dictated and finalized at location A. IMPRESSION: 1. Worsened diffuse lung disease, consistent with chronic interstitial lung dis ease with superimposed pulmonary edema versus pneumonia.
--- NOTE | 2022-07-01 03:31 | ECG_ITS ---
Measurements Intervals [place] Rate: 87 P: 59 [place]: 135 QRS: 1 QRSD: 95 T: 7 QT: 321 QTc: 388 Interpretive Statements SINUS RHYTHM WITH FREQUENT VENTRICULAR PREMATURE COMPLEXES POSSIBLE LEFT ATRIAL ENLARGEMENT [-0.1mV P WAVE IN V1/V2] INFERIOR MYOCARDIAL INFARCTION , PROBABLY OLD [40+ ms Q WAVE AND/OR ST/T ABNORMALITY IN II/aVF] ABNORMAL ECG Electronically Signed On 07-01-2022 14:54:26 CDT by Sj Freeman M.D.
--- NOTE | 2022-07-01 03:34 | ED.WEAKNESS ---
HPI - Weakness General Chief complaint: Weakness Stated complaint: INCREASING WEAKNESS; COVID-19+ Time Seen by Provider: 07/01/22 03:06 History of Present Illness HPI Narrative: This is a 56-year-old female with past medical history of CHF, COPD, CAD, who presents to the emergency department complaining of weakness and bilateral leg pain. She states she has been feeling poorly for the past several days, has tested herself 4 times for COVID all of which have been negative. She primarily complains of bilateral leg pain, described as sore, 4 out of 10, not associated with any swelling. She denies chest pain, shortness of breath, vomiting or abdominal pain. Related Data Home Medications Medication Instructions Recorded Confirmed aspirin 81 mg tablet,delayed 81 mg PO DAILY 06/29/19 06/28/22 release carvedilol 6.25 mg tablet 6.25 mg PO Q12H 06/29/19 06/28/22 clopidogrel 75 mg tablet (Plavix) 75 mg PO DAILY 06/29/19 06/28/22 letrozole 2.5 mg tablet 2.5 mg PO QAM 06/29/19 06/28/22 potassium chloride 20 mEq 20 meq PO BID 06/29/19 06/28/22 tablet,extended release lisinopril 5 mg tablet 5 mg PO DAILY 04/28/20 06/28/22 Ca 600 mg-D3 20 mcg-mag oxide 50 1 tablet PO DAILY 05/20/20 06/28/22 iw-Vj-zpzzrg-manganese-boron tablet cholecalciferol (vitamin D3) 50 50 mcg PO DAILY 05/20/20 06/28/22 mcg (2,000 unit) tablet multivitamin 1 tablet PO DAILY 05/20/20 06/28/22 ondansetron 4 mg disintegrating 4 mg PO Q6H PRN Nausea 05/20/20 06/28/22 tablet atorvastatin 40 mg tablet 40 mg PO QHS 06/23/21 06/28/22 denosumab 120 mg/1.7 mL (70 mg/mL) 120 mg subcut .QMONTHLY 06/23/21 06/28/22 subcutaneous solution ferrous sulfate 325 mg (65 mg 325 mg PO DAILY 11/09/21 06/28/22 iron) tablet furosemide 20 mg tablet 20 mg PO BID 12/22/21 06/28/22 palbociclib 125 mg capsule 125 mg PO DIRECTED 12/22/21 06/28/22 (Ibrance) mecobalamin (vitamin B12) 5,000 mcg PO 06/29/22 mcg disintegrating tablet Allergies Allergy/AdvReac Type Severity Reaction Status Date / Time Sulfa (Sulfonamide Allergy Mild RASH Verified 06/29/22 14:40 Antibiotics) sulfamethoxazole Allergy Mild RASH Verified 06/29/22 14:40 sulfamethizole Allergy Unknown Unknown Verified 06/29/22 14:40 trimethoprim Allergy Unknown Unknown Verified 06/29/22 14:40 Review of Systems Review of Systems: CONSTITUTIONAL: Denies fever, chills, or sweats. EYES: Denies visual changes, redness, or discharge. ENT: Denies rhinorrhea, congestion, sore throat, or otalgia. CARDIOVASCULAR: Denies chest pain, palpitations, or edema. RESPIRATORY: Denies cough or dyspnea. GASTROINTESTINAL: Denies abdominal pain, nausea, vomiting, or diarrhea. GENITOURINARY: Denies dysuria or hematuria. SKIN: Denies rash or itching. MUSCULOSKELETAL: Myalgia denies back pain, joint pain, or myalgia. NEUROLOGIC: Denies headache, numbness, dizziness, or weakness. PSYCHIATRIC: Denies anxiety or depression. [facility] Past Medical History Medical History Anxiety Aortic stenosis, moderate Breast cancer metastasized to multiple sites CAD in [place] artery Chronic congestive heart failure CKD (chronic kidney disease) stage 3, GFR 30-59 ml/min Dyslipidemia Essential (primary) hypertension GERD without esophagitis History of left breast cancer Pre-diabetes Stroke Unspecified osteoarthritis, unspecified site Vertigo Vitamin D deficiency Surgical History Surgical History History of bilateral mastectomy 2006 History of cardiac cath (~12/2006) History of coronary artery stent placement (~12/2009) -2009, 03/2020 History of transcatheter aortic valve replacement (TAVR) 03/2020 Family History Family History Other Heart disease Pulmonary stenosis Social History Social History Smoking packs
[2022-07-01] MEDS: ALBUTEROL SULFATE (*SP) AEROSOL 1 PUFF 2 PUFF INHALATION (03:46)
--- NOTE | 2022-07-01 03:47 | PCRCNOTE ---
pt stated to RT that she is positive for COVID. isolation cart placed in front of room.
[2022-07-01] MEDS: ACETAMINOPHEN 500 MG TABLET 1000 MG PO (04:16)
[2022-07-01 05:23] LABS: Alanine Aminotransferase 32 U/L (6-35); Albumin Level 3.3 g/dL (3.5-5.1); Alkaline Phosphatase 42 U/L (38-126); Anion Gap 9 mmol/L (8-16); Aspartate Amino Transferase 83 U/L (14-36); Bilirubin,Total 1.4 mg/dL (0.2-1.3); Blood Urea Nitrogen 44 mg/dL (7-17); Calcium 7.8 mg/dL (8.4-10.2); Carbon Dioxide 17 mmol/L (22-30); Chloride 99 mmol/L (98-107); Creatine Kinase 332 U/L (30-135); Estimated CRCL calculation 30 ml/min; Estimated Glomerular Filt Rate 27; Glucose 154 mg/dL (65-110); Potassium 4.3 mmol/L (3.4-5.0); Sodium 125 mmol/L (137-145)
[2022-07-01 05:33] LABS: NT Pro B Type Natriuretic Pept 16300 pg/mL (5-100)
[2022-07-01 05:40] LABS: SARS-CoV-2 RNA PCR Negative
[2022-07-01 06:00] LABS: Influenza A QL RT-PCR Negative (Negative); Influenza B QL RT-PCR Negative (Negative)
[2022-07-01] MEDS: HEPARIN SODIUM 5,000 UNITS/ML VIAL 4000 UNITS IV PUSH ×2 (06:32→22:14)
[2022-07-01 06:35] LABS: Basophils Absolute Auto 0.1 K/mm3 (0.0-0.1); Basophils Percent Auto 0.5 % (0.2-1.2); Eosinophils Percent Auto 0.1 % (0-4.4); Hematocrit 27.1 % (37.0-47.0); Hemoglobin 9.7 g/dL (12.0-15.0); Immature Granulocyte Absolute 0.17 K/mm3 (0.00-0.031); Immature Granulocyte Percent A 1.5 % (0-0.5); Immature Platelet Fraction Pct 6.2 % (0.9-11.2); Lymphocytes Absolute Auto 0.42 K/mm3 (0.9-3.2); Lymphocytes Percent Auto 3.7 % (18.3-44.2); Mean Corpuscular HGB Conc 35.8 g/dl (32-36); Mean Corpuscular Hemoglobin 39.8 pg (26-34); Mean Corpuscular Volume 111.1 fl (80-100); Mean Platelet Volume 10.8 fl (7.4-10.4); Monocytes Percent Auto 8.3 % (2.6-8.5); Neutrophils Absolute Auto 9.8 K/mm3 (1.3-6.7); Neutrophils Percent Auto 85.9 % (45.5-73.1); Nucleated Red Blood Cells Absolute Auto 0.1 K/mm3 (0.0-0.012); Nucleated Red Blood Cells Perc 0.4 % (0.0-0.2); Platelet Count Result 108 k/mm3 (150-375); Red Blood Count 2.44 M/mm3 (4.2-5.4); Red Cell Distribution Width 13.7 % (11.5-14.5); White Blood Count 11.4 K/mm3 (4.5-10.0)
--- NOTE | 2022-07-01 07:55 | PC.NURSE ---
lab unable to release ptt due to clot in tube. platelet count released and is low. heparin drip on hold. continue waiting for bed assignment. family at bedside.
[2022-07-01 08:14] LABS: INR 1.6; Prothrombin Time 18.5 Seconds (11.1-14.7)
[2022-07-01 08:15] LABS: Partial Thromboplastin Time 87.1 SECONDS (22.3-36.8)
[2022-07-01 08:52] LABS: D Dimer > 20.00 ug/mL (<0.48)
--- NOTE | 2022-07-01 09:37 | PC.NURSE ---
Per it is ok to start the Heparin Drip with platelets of 108. Bedside RN notified at this time.
[2022-07-01] MEDS: HEPARIN SOD/D5W 100 UNITS/ML 25,000 UNITS/250 ML BAG 8 UNITS IV CONT (09:53)
--- NOTE | 2022-07-01 10:36 | PM.CNCAR ---
Assessment and Plan Assessment and plan (1) Elevated troponin: Code(s): R77.8 - Other specified abnormalities of plasma proteins Status: Acute (2) Fever: Code(s): R50.9 - Fever, unspecified Status: Acute (3) Bilateral leg pain: Code(s): M79.604 - Pain in right leg; M79.605 - Pain in left leg Status: Acute (4) Breast cancer metastasized to multiple sites: Qualifiers: Laterality: unspecified laterality Qualified Code(s): C50.919 - Malignant neoplasm of unspecified site of unspecified female breast Code(s): C50.919 - Malignant neoplasm of unspecified site of unspecified female breast Status: Acute (5) CAD in [place] artery: Code(s): I25.10 - Atherosclerotic heart disease of [place] coronary artery without angina pectoris Status: Acute (6) S/P TAVR (transcatheter aortic valve replacement): Code(s): Z95.2 - Presence of prosthetic heart valve Status: Acute History of Present Illness History of Present Illness Consult date/time: Date of service 07/01/22 10:36 Requesting physician: Jhonny Watson MD Consult reason: Other (Elevated troponins) Reason For Visit: covid Narrative: This is 56-year-old female who follows up with Dr. Mckeon. She has a complex medical history including metastatic breast cancer with lung and bone involvement along with chest lymphadenopathy and parasternal soft tissue mass on femara and ibrance ( since January 2019. Most recent CT scan done May 26 showed no evidence of progression of disease. Her oncologist is Dr. martinez. She follows up with cardiology with Dr. Sammy Mckeon. She does have a history of coronary artery disease 2010 with stent to the LAD 2.25 x 18 and repeat stenting of the left circumflex artery InStent restenosis 2.5 x 18 [place] 2009, most recent catheterization at [facility] 2019 and at that time underwent PCI to the LAD for InStent restenosis usingorsiro 2.25 x 22 stent with post dilatation using 2.5 mm noncompliant balloon distally and 3 mm proximally as well as stenting to the mid RCA using 2 stents 4 x 38 and 4x34 covering ostium and then TAVR using 23 [place] valve also in 2019. Her most recent echocardiogram June 19, 2021 a [facility] showed ejection fraction 52%, normal right ventricular size and systolic function, mild aortic regurgitation, mean gradient across the aortic valve 16. she comes to the emergency room complaining of bilateral lower extremity pain, sore throat, not feeling well. She states her knees hurting. Also shortness of breath for the last couple days. Denies lower extremity edema, chest pain, palpitations dizziness or syncope. Tested positive for COVID at [facility] lab however interestingly she is negative for COVID in the ER. her temperature is 37.9? centigrade.. White cell count 11.7 K, hemoglobin 9.7 and platelet count 108( Baseline 157-180). D-dimer more than 20 serum creatinine 1.9( baseline 1.4-1.6) BUN 44, serum sodium 125 troponin 4, brain atretic peptide 16,000 Chest x-ray reviewed and the lysed myself shows diffuse interstitial lung changes which radiologist believe it is a chronic. Cardiomegaly as well. EKG reviewed and a large massive shows sinus rhythm, 58 in large amount, possible old inferior NH, frequent PVCs. When compared to an EKG done on July 07, 2021 at [facility] PVCs are new. Review of Systems Constitutional: Constitutional: Reports fever(s), Reports lethargy and Denies poor appetite Eyes: Eyes: Denies eye discharge, Denies loss of vision, Denies eye pain and Denies photophobia ENT: Denies dizziness, Denies epistaxis, Denies nasal congestion and Reports sore throat Cardiovascular: Cardiovascular: Denies chest pain, Denies syncope, Denies pedal edema, Denies leg edema, Denies palpitations and Reports dyspnea Respiratory: Respiratory: Denies cough, Reports dyspnea, Reports dyspnea on exertion and Denies wheezing Gastrointes
--- NOTE | 2022-07-01 11:14 | ECG_ITS ---
Measurements Intervals [place] Rate: 93 P: 55 [place]: 154 QRS: 1 QRSD: 92 T: 15 QT: 329 QTc: 411 Interpretive Statements SINUS RHYTHM WITH OCCASIONAL VENTRICULAR PREMATURE COMPLEXES WITH OCCASIONAL SUPRAVENTRICULAR PREMATURE COMPLEXES MINIMAL VOLTAGE CRITERIA FOR LVH, CONSIDER NORMAL VARIANT [MEETS CRITERIA IN ONE OF: R(aVL), S(V1), R(V5), R(V5/V6)+S(V1)] NONSPECIFIC ST & T-WAVE ABNORMALITY CANNOT RULE OUT INFERIOR ND ABNORMAL ECG Electronically Signed On 07-01-2022 15:00:53 CDT by Sj Freeman M.D.
--- NOTE | 2022-07-01 12:00 | PC.NURSE ---
Dr Daniel informed this RN and rn relief charge that patient was covid positive 06/30/22 at a [facility] facility despite positive PCR at this facility. Initiated isolation precautions and informed primary service.
--- NOTE | 2022-07-01 12:33 | PC.NURSE ---
1100 This patient, Britney Cade, was admitted to IMU Room 205-01. Patient/family oriented to hospital policies and general routines including ID bracelet, bed and alarms, visiting hours, pain management, procedures, bathroom and other care routines, personal items, smoking policy, room service/diet, and visiting hours. Information on how to activate the Rapid Response Team has been discussed. Patient/Family are encouraged to report perceived risks to care and to ask questions if they do not understand what they are told or what they should do.
[2022-07-01] MEDS: ONDANSETRON INJ 4 MG/2 ML VIAL IV PUSH (13:50)
[2022-07-01] MEDS: FUROSEMIDE INJ 40 MG/4 ML VIAL IV PUSH (14:30)
[2022-07-01] MEDS: methylPREDNISolone SOD SUCC 125 MG VIAL 60 MG IV PUSH ×2 (14:30→14:39)
--- NOTE | 2022-07-01 14:38 | PM.IMHP ---
H&P: HPI History of Present Illness Date/Time: 07/01/22 14:38 Chief Complaint: Weakness Narrative: This is a 56-year-old female patient who has a history of CHF, COPD and coronary artery disease with 2 stents. The patient presented to the emergency room complaining of weakness some bilateral leg pain. She did have a venous Doppler that was found to be negative. Her D-dimer was elevated. The patient has been feeling poorly for the last couple days she tested herself for COVID at home which was negative. She has a history of metastatic breast cancer and has been following with Dr. Arauz the patient tested positive for COVID A [facility] lab but tested negative here for COVID in the emergency room. She has a history of TAVR and 2 cardiac stents. Her white count is 11.4. H&H is 9.7 and 27.1. The patient went from 2 L nasal cannula to high-flow in the IMU. Her chest x-ray was read as worsened diffuse lung disease consistent with chronic interstitial lung disease and superimposed pulmonary edema versus pneumonia. When patient became hypoxic she dropped down in the 60s in IMU however she was placed on a non-rebreather and came up to 96%. The rivet thrower was notified and he had ordered her Lasix, steroids, and antibiotics. The patient is now awake and talking without difficulty. She has had a bilateral mastectomy and is now receiving a PICC line. Venous Dopplers but patent bilateral lower extremity veins no evidence of any deep vein thrombosis. Patient's platelets were 108. D-dimer is greater than 20. The patient could not have a CTA performed due to her low GFR. She does have a history of chronic renal disease. Sodium is 125 which was recently 133. Creatinine is now 1.9 with a baseline around 1.1-1.5. Her troponin was 4.160 and then 3.490. BNP 70598. Influenza A/B and COVID were negative here. The patient was started on a heparin drip. She is on a azithromycin Rocephin now. She was given Decadron in the emergency room. She was also given Solu-Medrol and Lasix today. The patient is being admitted to observation status on the date of service of 07/01/2022. Review of Systems Review of Systems: See HPI All systems reviewed & are unremarkable except as noted in HPI and below Constitutional: Constitutional: Reports as per HPI and Reports no additional constitutional complaints Eyes: Eyes: Reports as per HPI and Reports no additional eye complaints ENT: Reports system reviewed and no additional complaints, except as documented and Reports Normal hearing present Cardiovascular: Cardiovascular: Reports no additional cardiovascular complaints Respiratory: Respiratory: Reports no additional respiratory complaints and Reports no additional respiratory complaints Gastrointestinal: Gastrointestinal: Reports as per HPI and Reports no additional gastrointestinal complaints Musculoskeletal: Musculoskeletal: Reports no additional musculoskeletal complaints Integumentary/Breasts: Skin/Breast: Reports system reviewed and no additional complaints, except as docu and Reports as per HPI Neurologic: Reports system reviewed and no additional complaints, except as documented, Reports as per HPI and Reports Normal hearing present Psychiatric: Psychiatric: Reports no additional psychiatric complaints and Reports as per HPI Endocrine: Endocrine: Reports no additional endocrine complaints Hematologic/Lymphatic: Hematologic/Lymphatic: Reports no additional hematologic/lymphatic complaints Allergic/Immunologic: Allergic/Immunologic: Reports no additional allergic/immunologic complaints PMFSH Past Medical History Medical History Anxiety Aortic stenosis, moderate Breast cancer metastasized to multiple sites CAD in [place] artery Chronic congestive heart failure CKD (chronic kidney disease) stage 3, GFR 30-59 ml/min Dyslipidemia Essential (primary) hypertension GERD without esophagitis History of left
[2022-07-01] MEDS: LIDOCAINE HCL 1% PF INJ 5 ML VIAL INFILTRATE (15:00)
[2022-07-01 15:49] LABS: Mean Platelet Volume 11.6 fl (7.4-10.4); Platelet Count Result 100 k/mm3 (150-375)
[2022-07-01 15:58] LABS: Alanine Aminotransferase 43 U/L (6-35); Estimated CRCL calculation 35 ml/min; Estimated Glomerular Filt Rate 33
[2022-07-01 16:00] LABS: INR 1.7; Prothrombin Time 19.1 Seconds (11.1-14.7)
[2022-07-01 16:28] LABS: Alveolar/Arterial O2 Gradient 595.1 mmHg; Base Excess ABG -1.7 mEq/l (+/-2.0); Fractional Inspired Oxygen 100 %; HCO3 ABG 19.5 mEq/l (22.0-26.0); Oxygen Content ABG 14.5 %vol (16.0-22.0); Oxygen Saturation ABG 98.1 % (95.0-100.0); Oxyhemoglobin 96.5 % THb (90.0-100.0); PO2 ABG 94.8 mmHg (80.0-100.0); PO2 FiO2 Ratio Arterial Blood 0.95 %; Total Hemoglobin 10.6 g/dL (12.0-18.0)
[2022-07-01 16:34] LABS: Device HIGH FLOW NASAL CANN; Modified Allen's Test Pass; PCO2 ABG 23.1 mmHg (35.0-45.0); Site Drawn RIGHT RADIAL; pH ABG 7.545 (7.350-7.450)
[2022-07-01] MEDS: ALBUTEROL SULFATE NEB 2.5 MG/3 ML INH 5 MG INHALATION ×2 (16:38→21:22)
[2022-07-01] MEDS: IPRATROPIUM BR 0.02% INH SOLN 0.5 MG/2.5 ML VIAL INHALATION ×2 (16:38→21:22)
[2022-07-01 19:34] LABS: Partial Thromboplastin Time 52.8 SECONDS (22.3-36.8)
--- NOTE | 2022-07-01 19:48 | PC.NURSE ---
1400 Patient c/o of nausea. Found patient song and tachypneic. Placed patient on 15L HF and 15L NRBM to maintain o2 sats above 90%. Informed MD, collection advisor, and patients of patients status change. 1415 ordered stat chest xray, initiated airvo at 60L 90% with 15L NRBM to maintain sats. Field Support Rep present and placed orders, see NOV.
--- NOTE | 2022-07-01 22:00 | PC.NURSE ---
This patient, Britney Cade, was received from [[id number] ] on 07/01/22 at 9628. Patient/family oriented to unit policies and routines
[2022-07-01] MEDS: ATORVASTATIN 40 MG TABLET PO (22:14)
[2022-07-01] MEDS: carvediloL 6.25 MG TABLET PO (22:14)
--- NOTE | 2022-07-01 22:59 | PC.NURSE ---
This patient, Britney Cade, was transferred to [ICU ] on 07/01/22 at 2259. Personal belongings sent with patient. Report given to [Krissy looney ]. Appropriate documentation sent with patient.
[2022-07-01] MEDS: CENTRAL LINE FLUSH 10 ML IV PUSH (23:37)
[2022-07-02] VITALS (72 sets, daily range): BP systolic 96–161; BP diastolic 58–130; PULSE 91–178; RESP 21–44; TEMP 36.1–36.9; O2SAT 89–97
--- NOTE | 2022-07-02 00:01 | PC.NURSE ---
Updated on transfer to ICU and increased Oxygen needs and now on BIPAP. Discussed the next step of intubation and both and patient are in agreement of full code.
[2022-07-02 05:12] LABS: Hemoglobin 9.3 g/dL (12.0-15.0); Mean Corpuscular HGB Conc 35.8 g/dl (32-36); Mean Corpuscular Hemoglobin 39.9 pg (26-34); Mean Corpuscular Volume 111.6 fl (80-100); Mean Platelet Volume 12.4 fl (7.4-10.4); Platelet Count Result 101 k/mm3 (150-375); Red Blood Count 2.33 M/mm3 (4.2-5.4); Red Cell Distribution Width 14.3 % (11.5-14.5)
[2022-07-02 05:24] LABS: Lactic Acid Reflex 1.5 mmol/L (0.7-2.0)
--- NOTE | 2022-07-02 05:37 | ECG_ITS ---
Measurements Intervals [place] Rate: 165 P: VA: 0 QRS: 38 QRSD: 92 T: 142 QT: 272 QTc: 452 Interpretive Statements ATRIAL FIBRILLATION WITH RAPID VENTRICULAR RESPONSE NONSPECIFIC ST AND T-WAVE ABNORMALITY COMPARED TO ECG 07/01/2022 12:09:04 ATRIAL FIBRILLATION REPLACES SINUS RHYTHM Electronically Signed On 07-02-2022 14:02:42 CDT by Sammy Mckeon M.D.
[2022-07-02] MEDS: dilTIAZem HCl INJ 25 MG/5 ML VIAL 10 MG IV PUSH (06:07)
[2022-07-02] MEDS: CENTRAL LINE FLUSH 10 ML IV PUSH ×3 (06:08→21:04)
[2022-07-02] MEDS: dilTIAZem 100 MG/100 ML 100 MG/100 ML BAG IV CONT (06:08)
[2022-07-02 06:19] LABS: INR 1.4
[2022-07-02 06:23] LABS: Alanine Aminotransferase 64 U/L (6-35); Albumin Level 3.3 g/dL (3.5-5.1); Alkaline Phosphatase 45 U/L (38-126); Anion Gap 12 mmol/L (8-16); Aspartate Amino Transferase 200 U/L (14-36); Bilirubin,Total 1.3 mg/dL (0.2-1.3); Blood Urea Nitrogen 53 mg/dL (7-17); Calcium 7.8 mg/dL (8.4-10.2); Carbon Dioxide 26 mmol/L (22-30); Chloride 95 mmol/L (98-107); Estimated CRCL calculation 35 ml/min; Estimated Glomerular Filt Rate 33; Glucose 193 mg/dL (65-110); Magnesium 2.3 mg/dL (1.6-2.3); Phosphorus 3.6 mg/dL (2.5-4.5); Potassium 3.9 mmol/L (3.4-5.0); Sodium 133 mmol/L (137-145)
[2022-07-02 06:44] LABS: Partial Thromboplastin Time 99.3 SECONDS (22.3-36.8)
[2022-07-02 07:04] LABS: Lactate Dehydrogenase 1209 U/L (120-246)
[2022-07-02] MEDS: AMIODARONE 150 MG/D5W 100 ML 150 MG/100 ML BAG 600 MG IV CONT (07:42)
[2022-07-02 07:44] LABS: Band Neutrophils Percent 16 % (0-6); Lymphocytes Absolute Manual 0.66 K/mm3 (1.1-4.5); Metamyelocytes Percent 2 %; Monocytes Absolute Manual 0.44 K/mm3 (0.1-0.90); Monocytes Percent Manual 4 % (3-9); Neutrophils Absolute Manual 9.68 K/mm3 (1.7-7.2); Neutrophils Percent Manual 72 % (46-73); Nucleated Red Blood Cells 2 %; Total Cells Counted 100
[2022-07-02 07:45] LABS: Anisocytosis 1+ (NORMAL); Burr Cells 1+ (NORMAL); Ovalocytes 2+ (NORMAL); Schistocytes 1+ (NORMAL)
[2022-07-02 07:46] LABS: Poikilocytosis 2+ (NORMAL)
[2022-07-02] MEDS: IPRATROPIUM BR 0.02% INH SOLN 0.5 MG/2.5 ML VIAL INHALATION ×4 (08:29→21:44)
[2022-07-02] MEDS: ALBUTEROL SULFATE NEB 2.5 MG/3 ML INH 5 MG INHALATION ×4 (08:29→21:43)
[2022-07-02 10:08] LABS: Alveolar/Arterial O2 Gradient 633.8 mmHg; Fractional Inspired Oxygen 100 %; HCO3 ABG 22.4 mEq/l (22.0-26.0); Oxygen Content ABG 12.1 %vol (16.0-22.0); PCO2 ABG 32.3 mmHg (35.0-45.0); PO2 FiO2 Ratio Arterial Blood 0.47 %; Total Hemoglobin 10.3 g/dL (12.0-18.0); pH ABG 7.458 (7.350-7.450)
[2022-07-02 10:12] LABS: PO2 ABG 46.9 mmHg (80.0-100.0)
[2022-07-02 10:13] LABS: Device BIPAP; Modified Allen's Test Pass; Oxygen Saturation ABG 85.6 % (95.0-100.0); Oxyhemoglobin 83.3 % THb (90.0-100.0); Site Drawn RIGHT RADIAL
[2022-07-02 10:13] LABS: Procalcitonin 88.5 ng/mL
[2022-07-02] MEDS: REMDESIVIR 100 MG/NS 250 ML 100 MG/250 ML BAG 250 MG IVPB (10:13)
[2022-07-02] MEDS: AMIODARONE 360 MG/D5W 200 ML 360 MG/200 ML BAG 33.33 MG IV CONT ×3 (10:13→21:34)
[2022-07-02 10:14] LABS: Expiratory Pressure 8 cmH2O; Inspiratory Pressure 16 cmH2O
[2022-07-02] MEDS: FUROSEMIDE INJ 100 MG/10 ML VIAL 80 MG IV PUSH (10:16)
[2022-07-02] MEDS: REMDESIVIR 200 MG/NS 250 ML 200 MG/250 ML BAG 250 MG IVPB (10:17)
[2022-07-02 10:37] LABS: CRP > 45.0 mg/dL (<1.0)
[2022-07-02 10:51] LABS: Alveolar/Arterial O2 Gradient 609.6 mmHg; Base Excess ABG -0.2 mEq/l (+/-2.0); Carboxyhemoglobin 0.5 % THb (0-2.0); Fractional Inspired Oxygen 100 %; HCO3 ABG 23.7 mEq/l (22.0-26.0); Methemoglobin ABG 0.3 %THb (0-1.5); Oxygen Content ABG 16.2 %vol (16.0-22.0); Oxyhemoglobin 91.2 % THb (90.0-100.0); PCO2 ABG 36.3 mmHg (35.0-45.0); PO2 ABG 67.1 mmHg (80.0-100.0); PO2 FiO2 Ratio Arterial Blood 0.67 %; Total Hemoglobin 12.6 g/dL (12.0-18.0); pH ABG 7.433 (7.350-7.450)
[2022-07-02 10:52] LABS: Device BIPAP; Modified Allen's Test Pass; Site Drawn RIGHT RADIAL
[2022-07-02 10:53] LABS: Expiratory Pressure 8 cmH2O; Inspiratory Pressure 16 cmH2O
--- NOTE | 2022-07-02 11:07 | WPDCNINT ---
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 She is on remdesivir and dexamethasone the usual doses. She is also on empiric antibiotics for concern of secondary bacterial pneumonia. She is immunocompromised due to her metastatic breast cancer. ABG today shows normal acid-base status with severe hypoxemia. We will try prone positioning, change in BiPAP, intermittently using high-flow nasal cannula. plan: * prone positioning every 4 hours as tolerated * remdesivir #1 cefepime #1, vanco #1, azithromycin #2, dexamethasone #2, * amiodarone drip, heparin drip at higher rate for atrial fib, metoprolol I;, cardiology management of atrial fib * GI prophylaxis * close management and possible intubation, continue BiPAP for now * discussed Actemra, tocilizumab with Ch[place], PharmD, and Dr Leslie; she has metastatic breast cancer which is stable however she is at risk for deterioration with a serious infection given met breast cancer, and she has markers that suggest she may have a bacterial infection superimposed on COVID. Will continue to watch closely. (2) CKD (chronic kidney disease) stage 3, GFR 30-59 ml/min: Qualifiers: Chronic kidney disease stage 3 subtype: stage 3a (GFR 45-59) Qualified Code(s): N18.31 - Chronic kidney disease, stage 3a Code(s): N18.30 - Chronic kidney disease, stage 3 unspecified Status: Acute Assessment and Plan: Has baseline CKD, renal performance improved overnight, BUN today 53, creatinine 1.6, yesterday BUN 44 creatinine 1.9 Creatinine clearance is higher today 35, yesterday was 30 (3) Atrial fibrillation with rapid ventricular response: Code(s): I48.91 - Unspecified atrial fibrillation Status: Acute Assessment and Plan: This began overnight, rates up to 140s. She required IV amiodarone bolus and now is on an amiodarone drip, diltiazem, and she is receiving IV metoprolol per Dr. Mckeon. Her atrial fibrillation cause elevated troponins. Her rhythm disturbance is secondary to respiratory distress, hypoxemia due to COVID pneumonia and possible secondary bacterial pneumonia. (4) Breast cancer metastasized to multiple sites: Qualifiers: Laterality: unspecified laterality Qualified Code(s): C50.919 - Malignant neoplasm of unspecified site of unspecified female breast Code(s): C50.919 - Malignant neoplasm of unspecified site of unspecified female breast Status: Acute Assessment and Plan: Longstanding, managed by Dr. Arauz; She has metastatic breast cancer with bone involvement January 04, 2019 Initial diagnosis September 2006 T3 N3 M0 stage IIIC infiltrative ductal carcinoma left breast ER and AL positive, HER-2/eu negative Sep 2006; neoadjuvant chemotherapy with Adriamycin, Cytoxan x4, Taxol x4, finished May 2007.;axillary LN dissection May 2007, radiation completed Jul 2007, Femara and Verzenio started January 2019 for met breast cancer. This is a stable problem that puts her at risk for opportunistic infections and is a concern for starting tocilizumab as this could precipitate massive infection. (5) Chronic congestive heart failure: Qualifiers: Heart failure type: unspecified Qualified Code(s): I50.9 - Heart failure, unspecified Code(s): I50.9 - Heart fail
--- NOTE | 2022-07-02 12:17 | PM.PNCARD ---
Progress Note: A&P Assessment and Plan (1) Acute respiratory failure due to COVID-19: Code(s): U07.1 - COVID-19; J96.00 - Acute respiratory failure, unspecified whether with hypoxia or hypercapnia Status: Acute (2) S/P TAVR (transcatheter aortic valve replacement): Code(s): Z95.2 - Presence of prosthetic heart valve Status: Acute (3) Elevated troponin: Code(s): R77.8 - Other specified abnormalities of plasma proteins Status: Acute Plan continue IV amiodarone which is with started earlier today. Patient will be placed on heparin infusion given her atrial fib and metastatic breast cancer. I will use some p.r.n. IV metoprolol to provide better rate control and hopefully assist with affecting a medical cardioversion. Sammy Mckeon MD [facility] Subjective Date/time seen: date of service:07/02/22 12:17 Interval history: Follow-up visit in this 56-year-old lady with: Significant hypoxemia requiring BiPAP and transferred to the ICU yesterday. Patient suspected of COVID with positive COVID test prior to admission. History of coronary artery disease with previous PCI and history of TAVR 2 years ago. This morning patient developed AFib with RVR. Has been started on IV amiodarone. Still tachycardic. That in any significant distress. Troponin levels were significantly elevated following admission. This is likely the result of the hypoxemia and also rapid atrial fib. Exam Const: General: comfortable and no acute distress Other: Well-developed well-nourished pleasant lady on BiPAP reports to be in no distress HENMT: Mouth: Yes moist mucous membranes Eyes: Sclera: sclerae normal Neck: Neck: supple and no JVD Resp: Auscultation: diminished lung sounds Other: Scattered Rhonchi Cardio: Rate: tachycardic Rhythm: abnormal rhythm irregularly irregular GI: GI Palp: Yes Soft to palpation Auscultation: normal bowel sounds Skin: General skin exam: normal color Neuro: Other: alert and oriented x3 Extrem: Other: no edema, good distal perfusion Objective Data Vital Signs Vital Signs: Vital Signs - 24 hr 07/01/22 16:37 07/01/22 16:00 07/01/22 18:00 Temperature 37.7 C H Pulse Rate 115 H 119 H Respiratory Rate 32 H Blood Pressure 133/73 Pulse Oximetry 93 94 Oxygen Delivery High Flow Therapy with Na Oxygen Flow Rate 60 Fraction of Inspired Oxygen 90 07/01/22 16:00 07/01/22 16:00 07/01/22 19:47 Temperature 37.5 C Pulse Rate 123 H 119 H Respiratory Rate 20 Blood Pressure 143/53 H Pulse Oximetry 90 93 Oxygen Delivery High Flow Therapy with Na Oxygen Flow Rate 60 Fraction of Inspired Oxygen 90 07/01/22 21:24 07/01/22 21:26 07/01/22 22:14 Temperature Pulse Rate 112 H 116 H Respiratory Rate 28 H Blood Pressure Pulse Oximetry 88 L Oxygen Delivery High Flow Therapy with Na Oxygen Flow Rate 60 Fraction of Inspired Oxygen 90 07/01/22 21:50 07/01/22 22:59 07/01/22 22:55 Temperature Pulse Rate 105 H Respiratory Rate 28 H 36 H Blood Pressure 131/68 Pulse Oximetry 90 96 Oxygen Delivery High Flow Therapy with Na BiPAP Oxygen Flow Rate 60 Fraction of Inspired Oxygen 93 07/01/22 22:00 07/02/22 00:00 07/02/22 00:00 Temperature 36.6 C Pulse Rate 110 H 95 Respiratory Rate 30 H Blood Pressure 125/71 Pulse Oximetry 93 93 Oxygen Delivery BiPAP Oxygen Flow Rate Fraction of Inspired Oxygen 90 07/02/22 00:00 07/02/22 02:00 07/02/22 02:00 Temperature Pulse Rate 95 92 92 Respiratory Rate 30 H Blood Pressure 127/72 Pulse Oximetry 95 Oxygen Delivery Oxygen Flow Rate Fraction of Inspired Oxygen 07/02/22 02:15 07/02/22 04:00 07/02/22 04:00 Temperature Pulse Rate 91 Respiratory Rate 22 H Blood Pressure Pulse Oximetry 94 Oxygen Delivery BiPAP BiPAP Oxygen Flow Rate Fraction of Inspired Oxygen 90 07/02/22 04:00 06/13
[2022-07-02] MEDS: METOPROLOL TARTRATE INJ 5 MG/5 ML VIAL IV PUSH ×3 (12:33→21:36)
[2022-07-02 12:54] LABS: Basophils Absolute Auto 0.1 K/mm3 (0.0-0.1); Basophils Percent Auto 0.9 % (0.2-1.2); Hematocrit 25.8 % (37.0-47.0); Hemoglobin 9.1 g/dL (12.0-15.0); Immature Granulocyte Absolute 0.15 K/mm3 (0.00-0.031); Immature Granulocyte Percent A 1.2 % (0-0.5); Lymphocytes Absolute Auto 0.68 K/mm3 (0.9-3.2); Lymphocytes Percent Auto 5.3 % (18.3-44.2); Mean Corpuscular HGB Conc 35.3 g/dl (32-36); Mean Corpuscular Hemoglobin 39.7 pg (26-34); Mean Corpuscular Volume 112.7 fl (80-100); Mean Platelet Volume 12.1 fl (7.4-10.4); Monocytes Absolute Auto 0.7 K/mm3 (0.1-0.6); Monocytes Percent Auto 5.1 % (2.6-8.5); Neutrophils Absolute Auto 11.3 K/mm3 (1.3-6.7); Neutrophils Percent Auto 87.5 % (45.5-73.1); Nucleated Red Blood Cells Perc 0.3 % (0.0-0.2); Platelet Count Result 102 k/mm3 (150-375); Red Blood Count 2.29 M/mm3 (4.2-5.4); Red Cell Distribution Width 14.4 % (11.5-14.5); White Blood Count 12.9 K/mm3 (4.5-10.0)
[2022-07-02 13:30] LABS: SARS-CoV-2 RNA PCR Negative
[2022-07-02 13:44] LABS: Poikilocytosis 1+ (NORMAL)
[2022-07-02 13:45] LABS: Burr Cells 2+ (NORMAL)
[2022-07-02 13:49] LABS: Schistocytes None Seen (NORMAL)
--- NOTE | 2022-07-02 15:04 | PM.IMPN ---
Progress Note: A&P Assessment and Plan (1) COVID: Code(s): U07.1 - COVID-19 Status: Acute Assessment and Plan: COVID positive at [facility] but negative here On admission. Possible superadded bacterial infection likely as well Started on Decadron Good did start remdesivir 07/01/2022 due to low GFR however GFR within limits for start of remdesivir today Will start remdesivir thoughl worsening respiratory status may be a candidate or of tocilizumab / baricitinib. within a short period of admission there is high E suspicion for superadded bacterial infection /systemic infection and hence will be avoided at this time. (2) CKD (chronic kidney disease) stage 3, GFR 30-59 ml/min: Qualifiers: Chronic kidney disease stage 3 subtype: stage 3a (GFR 45-59) Qualified Code(s): N18.31 - Chronic kidney disease, stage 3a Code(s): N18.30 - Chronic kidney disease, stage 3 unspecified Status: Acute Assessment and Plan: -she has acute on chronic -her creatinine is 1.9 on admission with a baseline is typically 1.4-1.5. hold lisinopril (3) Elevated troponin: Code(s): R77.8 - Other specified abnormalities of plasma proteins Status: Acute Assessment and Plan: -patient's troponin was 4.160 and is now 3.490. She is on a heparin drip for non ST-elevation NE. this is suspected to be related to her underlying COVID No chest pain -cardiology has been consulted.She follows up with cardiology with Dr. Sammy Mckeon.? She does have a history of coronary artery disease 2009 with stent to the LAD 2.25 x 18 and repeat stenting of the left circumflex artery InStent restenosis 2.5 x 18 Cypher 2009, most recent catheterization at [facility] 2019 and at that time underwent PCI to the LAD for InStent restenosis usingorsiro 2.25 x 22 stent with post dilatation using 2.5 mm noncompliant balloon distally and 3 mm proximally as well as stenting to the mid RCA using 2 stents 4 x 38 and 4x34 covering ostium and then TAVR using 23 Brenton valve also in 2019.? Her most recent echocardiogram June 19, 2021 a [facility] showed ejection fraction 52%, normal right ventricular size and systolic function, mild aortic regurgitation, mean gradient across the aortic valve 16. echo performed which is pending (4) CHF exacerbation: Code(s): I50.9 - Heart failure, unspecified Status: Acute Assessment and Plan: -patient was given IV Lasix today per manager economic due to her pulmonary edema. -her lisinopril plus placed on hold due to the acute renal failure. Will continue diuresis. Chest x-ray this morning with worsening opacities bilaterally likely pulmonary edema Procalcitonin came back elevated at 88 as well Will broaden antibiotic coverage Lasix 60 mg b.i.d. IV (5) CAD in [place] artery: Code(s): I25.10 - Atherosclerotic heart disease of [place] coronary artery without angina pectoris Status: Acute Assessment and Plan: -according to Cardiology note the patient is to continue with aspirin and Plavix. (6) Breast cancer metastasized to multiple sites: Qualifiers: Laterality: unspecified laterality Qualified Code(s): C50.919 - Malignant neoplasm of unspecified site of unspecified female breast Code(s): C50.919 - Malignant neoplasm of unspecified site of unspecified female breast Status: Acute Assessment and Plan: -she may use her home dose of Ibrance is his norm formulary here (7) Anxiety: Code(s): F41.9 - Anxiety disorder, unspecified Status: Acute Assessment and Plan: -continue with sertraline (8) Dyslipidemia: Code(s): E78.5 - Hyperlipidemia, unspecified Status: Acute Assessment and Plan: -continue with Lipitor (9) Essential (primary) hypertension: Code(s): I10 - Essential (primary) hypertension Status: Acute Assessment and Plan: -lisinopril is on hold at this time. Due to her acute bonnie
[2022-07-02] MEDS: MORPHINE SULFATE (*CRX) 4 MG/ML INJ IV PUSH ×2 (15:05→21:36)
[2022-07-02 15:33] LABS: INR 1.4; Partial Thromboplastin Time 86.5 SECONDS (22.3-36.8); Prothrombin Time 16.3 Seconds (11.1-14.7)
[2022-07-02 16:26] LABS: D Dimer > 20.00 ug/mL (<0.48)
[2022-07-02] MEDS: FUROSEMIDE INJ 100 MG/10 ML VIAL 60 MG IV PUSH (17:24)
[2022-07-03] VITALS (36 sets, daily range): BP systolic 76–135; BP diastolic 50–82; PULSE 97–136; RESP 20–31; TEMP 36.6–37.1; O2SAT 91–99
[2022-07-03] MEDS: ALBUTEROL SULFATE NEB 2.5 MG/3 ML INH 5 MG INHALATION ×5 (01:57→21:17)
[2022-07-03] MEDS: IPRATROPIUM BR 0.02% INH SOLN 0.5 MG/2.5 ML VIAL INHALATION ×5 (01:57→21:17)
[2022-07-03] MEDS: AMIODARONE 360 MG/D5W 200 ML 360 MG/200 ML BAG 33.33 MG IV CONT ×4 (03:32→20:43)
[2022-07-03] MEDS: METOPROLOL TARTRATE INJ 5 MG/5 ML VIAL IV PUSH ×2 (03:34→09:57)
[2022-07-03] MEDS: CENTRAL LINE FLUSH 10 ML IV PUSH ×3 (05:51→20:44)
--- NOTE | 2022-07-03 06:11 | PCRCNOTE ---
Window of time for administration has passed. See next scheduled administration.
[2022-07-03 06:56] LABS: Basophils Percent Auto 0.3 % (0.2-1.2); Hematocrit 22.4 % (37.0-47.0); Hemoglobin 8.2 g/dL (12.0-15.0); Immature Granulocyte Percent A 1.3 % (0-0.5); Lymphocytes Absolute Auto 0.63 K/mm3 (0.9-3.2); Lymphocytes Percent Auto 4.1 % (18.3-44.2); Mean Corpuscular HGB Conc 36.6 g/dl (32-36); Mean Corpuscular Volume 106.7 fl (80-100); Mean Platelet Volume 12.3 fl (7.4-10.4); Monocytes Absolute Auto 0.9 K/mm3 (0.1-0.6); Monocytes Percent Auto 5.7 % (2.6-8.5); Neutrophils Absolute Auto 13.8 K/mm3 (1.3-6.7); Neutrophils Percent Auto 88.6 % (45.5-73.1); Nucleated Red Blood Cells Absolute Auto 0.1 K/mm3 (0.0-0.012); Nucleated Red Blood Cells Perc 0.4 % (0.0-0.2); Platelet Count Result 123 k/mm3 (150-375); Red Cell Distribution Width 14.5 % (11.5-14.5); White Blood Count 15.5 K/mm3 (4.5-10.0)
[2022-07-03] MEDS: MORPHINE SULFATE (*CRX) 4 MG/ML INJ IV PUSH ×3 (06:59→20:41)
[2022-07-03 07:06] LABS: Alanine Aminotransferase 90 U/L (6-35); Albumin Level 3.2 g/dL (3.5-5.1); Alkaline Phosphatase 59 U/L (38-126); Anion Gap 16 mmol/L (8-16); Aspartate Amino Transferase 200 U/L (14-36); Bilirubin,Total 1.3 mg/dL (0.2-1.3); Blood Urea Nitrogen 87 mg/dL (7-17); Carbon Dioxide 22 mmol/L (22-30); Chloride 92 mmol/L (98-107); Estimated CRCL calculation 20 ml/min; Estimated Glomerular Filt Rate 17; Glucose 240 mg/dL (65-110); Magnesium 2.6 mg/dL (1.6-2.3); Potassium 4.6 mmol/L (3.4-5.0); Sodium 130 mmol/L (137-145)
[2022-07-03 07:09] LABS: INR 1.4; Prothrombin Time 16.4 Seconds (11.1-14.7)
[2022-07-03 07:11] LABS: Partial Thromboplastin Time 100.5 SECONDS (22.3-36.8)
[2022-07-03 08:03] LABS: Platelet Estimate Decreased (Adequate)
[2022-07-03 08:04] LABS: Burr Cells 1+ (NORMAL); Crenated RBC 1+ (NORMAL); Ovalocytes 2+ (NORMAL)
[2022-07-03] MEDS: HEPARIN SOD/D5W 100 UNITS/ML 25,000 UNITS/250 ML BAG 11 UNITS IV CONT (08:38)
[2022-07-03 09:43] LABS: Schistocytes None Seen (NORMAL)
[2022-07-03] MEDS: carvediloL 6.25 MG TABLET PO ×2 (11:40→20:41)
[2022-07-03] MEDS: ASPIRIN 81 MG ENTERIC TABLET PO (11:40)
[2022-07-03] MEDS: CLOPIDOGREL BISULFATE 75 MG TABLET PO (11:40)
[2022-07-03] MEDS: LETROZOLE (*CHEMO) 2.5 MG TABLET PO (11:40)
--- NOTE | 2022-07-03 13:30 | PM.PNCARD ---
Progress Note: A&P Assessment and Plan (1) Atrial fibrillation with rapid ventricular response: Code(s): I48.91 - Unspecified atrial fibrillation Status: Acute Assessment and Plan: PAR w/ onset AFib RVR this admission due to COVID pneumonia and respiratory failure late reasonably controlled taking her usual carvedilol + amiodarone Anticoagulated with heparin. Currently on triple drug therapy ( aspirin, Plavix and heparin). Discussed w/ Dr. Parrish, will add PPI (2) Elevated troponin: Code(s): R77.8 - Other specified abnormalities of plasma proteins Status: Acute Assessment and Plan: H/O CAD and previous intervention. Significantly elevated troponin but no chest pain and no ischemic EKG changes. Due to hypoxia and AFib RVR continue current therapy for her CAD with aspirin, statin etc. On DAPT + heparin; will review pt's records to see if we can DC her ASA to reduce the risk of GI bleeding (3) Acute respiratory failure due to COVID-19: Code(s): U07.1 - COVID-19; J96.00 - Acute respiratory failure, unspecified whether with hypoxia or hypercapnia Status: Acute Assessment and Plan: Respiratory failure due to COVID pneumonia, perhaps some improvement by chest x-ray and requiring a little less oxygen, down to FiO2 of 90%. (4) S/P TAVR (transcatheter aortic valve replacement): Code(s): Z95.2 - Presence of prosthetic heart valve Status: Acute Assessment and Plan: Normal prosthetic valve function. Plan Subjective Date/time seen: 07/03/22 13:30 Interval history: Follow-up visit in this 56-year-old lady with: New onset a fib RVR. Admitted w/ respiratory failure due to COVID. Elevated troponins, up to 7.6, due hypoxemia and also rapid atrial fib. She was started on IV amiodarone. History of coronary artery disease with previous PCI and history of TAVR 2 years ago. H/O metastatic breast cancer. Echo this admission: EF 40-45%, normal appearance and function of TAVR valve. Mild LV enlargement. 07/02/2022: Still tachycardic. Not in any significant distress. Troponin levels were significantly elevated following admission. This is likely the result of the hypoxemia and also rapid atrial fib. No ischemic evaluation needed. Added metoprolol for rate control and continuous IV heparin. Date of Service 07/03/2022: Feels a little better. Remains on BiPAP, FiO2 100% for much of morning, now 90%. Heart rate 90-110, occ up to 120 on IV amio + metoprolol. I's and O's balanced. Review of Systems Review of Systems: No chest pain, abdominal pain, back pain. Still short of breath. Remains NPO. Exam Const: General: cooperative, healthy appearing and comfortable; No confusion Orientation/consciousness: oriented to person, patient oriented x3 and No confusion Other: On continuous BiPAP alert, answers questions HENMT: Mouth: Yes moist mucous membranes Eyes: EOM: EOMs intact bilaterally Neck: Neck: supple Resp: Effort & Inspection: normal respiratory effort Auscultation: clear to auscultation bilaterally and diminished lung sounds Cardio: Rate: regular rate Rhythm: regular rhythm and abnormal rhythm irregularly irregular GI: Inspection: normal to inspection GI Palp: No abdominal tenderness Skin: General skin exam: no rashes or lesions noted Neuro: General: oriented to person, patient oriented x3 and No confusion Extrem: Right lower extremity: no edema Left lower extremity: no edema Psych: Appearance: grossly normal Mental Status: mental status grossly normal Objective Data Vital Signs Vital Signs: Vital Signs - 24 hr 07/02/22 13:57 07/02/22 14:00 07/02/22 14:01 Temperature Pulse Rate 128 H 130 H 117 H Respiratory Rate 34 H 34 H 30 H Blood Pressure 124/78 Pulse Oximetry 94 96 97 Oxygen Delivery Fraction of Inspired Oxygen 07/02/22 14:15 07/02/22 14:15 07/02/22 15:51
--- NOTE | 2022-07-03 13:39 | WPDINTPN ---
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 She is on remdesivir and dexamethasone the usual doses.? She is also on empiric antibiotics for concern of secondary bacterial pneumonia.? She is immunocompromised due to her metastatic breast cancer. ABG today shows normal acid-base status with severe hypoxemia.? We will try prone positioning, change in BiPAP, intermittently using high-flow nasal cannula. plan: * prone positioning every 4 hours as tolerated * remdesivir #1 cefepime #1, vanco #1, azithromycin #2, dexamethasone #2, * amiodarone drip, heparin drip at higher rate for atrial fib, metoprolol? I;, cardiology management of atrial fib * GI prophylaxis * close management and possible intubation, continue BiPAP for now * discussed Actemra, tocilizumab with Chacho, PharmD, and Dr Leslie; she has metastatic breast cancer which is stable however she is at risk for deterioration with a serious infection given met breast cancer, and she has markers that suggest she may have a bacterial infection superimposed on COVID. Will continue to watch closely. Plan Due to a high probability of clinically significant, life threatening deterioration, the patient required my highest level of preparedness to intervene emergently and I personally spent this critical care time directly and personally managing the patient. This critical care time included obtaining a history; examining the patient; pulse oximetry; ordering and review of studies; arranging urgent treatment with development of a management plan; evaluation of patient's response to treatment; frequent reassessment; and discussions with other providers. It was exclusive of separately billable procedures and treating other patients and teaching time. Please see Assessment and Plan section and the rest of the note for further information on patient assessment and treatment. Critical Care time 65 minutes. (2) CKD (chronic kidney disease) stage 3, GFR 30-59 ml/min: Qualifiers: Chronic kidney disease stage 3 subtype: stage 3a (GFR 45-59) Qualified Code(s): N18.31 - Chronic kidney disease, stage 3a Code(s): N18.30 - Chronic kidney disease, stage 3 unspecified Status: Acute Assessment and Plan: Has baseline CKD, renal performance has worsened; BUN/creat 53/1.6 --> 87/2.8 Oct , so Remdesivir was stopped. Creatinine clearance is lower. Her BP has been lower, fluids started, norepinephrine started to increase renal perfusion. (3) Atrial fibrillation with rapid ventricular response: Code(s): I48.91 - Unspecified atrial fibrillation Status: Acute Assessment and Plan: This began the first night, rates up to 140s; IV amiodarone bolus, amiodarone drip, diltiazem, and she is receiving IV metoprolol. Her atrial fibrillation caused elevated troponins.? Her rhythm disturbance is secondary to respiratory distress, hypoxemia due to COVID pneumonia and possible secondary bacterial pneumonia. She is having rates around 100. (4) Breast cancer metastasized to multiple sites: Qualifiers: Laterality: unspecified laterality Qualified Code(s): C50.919 - Malignant neoplasm of unspecified site of unspecified female breast Code(s): C50.919 - Malignant neoplasm of unspecified site of unspecified female breast Status: Acute Assessment and Plan: [place]
--- NOTE | 2022-07-03 13:43 | PM.IMPN ---
Progress Note: A&P Assessment and Plan (1) COVID: Code(s): U07.1 - COVID-19 Status: Acute Assessment and Plan: COVID positive at [facility] but negative here On admission. Possible superadded bacterial infection likely as well Started on Decadron Good did start remdesivir 07/01/2022 due to low GFR however GFR within limits for start of remdesivir today Will start remdesivir thoughl worsening respiratory status may be a candidate or of tocilizumab / baricitinib. within a short period of admission there is high suspicion for superadded bacterial infection /systemic infection and hence will be avoided at this time. 07/03: Creatinine worsened will hold remdesivir continue on Decadron. Start sliding scale insulin (2) CKD (chronic kidney disease) stage 3, GFR 30-59 ml/min: Qualifiers: Chronic kidney disease stage 3 subtype: stage 3a (GFR 45-59) Qualified Code(s): N18.31 - Chronic kidney disease, stage 3a Code(s): N18.30 - Chronic kidney disease, stage 3 unspecified Status: Acute Assessment and Plan: -she has acute on chronic -her creatinine is 1.9 on admission with a baseline is typically 1.4-1.5. hold lisinopril Creatinine bumped up to 2.8. Likely due to diuresis. Hold Lasix today (3) Elevated troponin: Code(s): R77.8 - Other specified abnormalities of plasma proteins Status: Acute Assessment and Plan: -patient's troponin was 4.160 and is now 3.490. She is on a heparin drip for non ST-elevation AR. this is suspected to be related to her underlying COVID No chest pain -cardiology has been consulted.She follows up with cardiology with Dr. Sammy Mckeon.? She does have a history of coronary artery disease 2009 with stent to the LAD 2.25 x 18 and repeat stenting of the left circumflex artery InStent restenosis 2.5 x 18 Cypher 2009, most recent catheterization at [facility] 2019 and at that time underwent PCI to the LAD for InStent restenosis usingorsiro 2.25 x 22 stent with post dilatation using 2.5 mm noncompliant balloon distally and 3 mm proximally as well as stenting to the mid RCA using 2 stents 4 x 38 and 4x34 covering ostium and then TAVR using 23 Brenton valve also in 2020.? Her most recent echocardiogram June 19, 2021 a [facility] showed ejection fraction 52%, normal right ventricular size and systolic function, mild aortic regurgitation, mean gradient across the aortic valve 16. echo performed 07/01/2022: EF 40-45%, normal appearance and function of TAVR valve. (4) CHF exacerbation: Code(s): I50.9 - Heart failure, unspecified Status: Acute Assessment and Plan: -patient was given IV Lasix today per military pay technician due to her pulmonary edema. -her lisinopril plus placed on hold due to the acute renal failure. Will continue diuresis. Chest x-ray this morning with worsening opacities bilaterally likely pulmonary edema Procalcitonin came back elevated at 88 as well broaden antibiotic coverage with vancomycin cefepime and azithromycin. Lasix 60 mg b.i.d. IV Which will be held today (5) CAD in [place] artery: Code(s): I25.10 - Atherosclerotic heart disease of [place] coronary artery without angina pectoris Status: Acute Assessment and Plan: -according to Cardiology note the patient is to continue with aspirin and Plavix. (6) Breast cancer metastasized to multiple sites: Qualifiers: Laterality: unspecified laterality Qualified Code(s): C50.919 - Malignant neoplasm of unspecified site of unspecified female breast Code(s): C50.919 - Malignant neoplasm of unspecified site of unspecified female breast Status: Acute Assessment and Plan: -she may use her home dose of Ibrance is his norm formulary here (7) Anxiety: Code(s): F41.9 - Anxiety disorder, unspecified Status: Acute Assessment and Plan: -continue with sertraline (8) Dyslipidemia: Code(s): E78.5 - Hyperlipidemia, un
[2022-07-03] MEDS: SERTRALINE HCL 50 MG TABLET 100 MG PO (15:00)
[2022-07-03] MEDS: PANTOPRAZOLE SODIUM IV 40 MG VIAL IV PUSH (15:24)
[2022-07-03] MEDS: SODIUM CHLORIDE 0.9% IV 250 ML IV CONT (15:54)
[2022-07-03] MEDS: SODIUM CHLORIDE 0.9% IV 1,000 ML 125 ML IV CONT (15:54)
[2022-07-03] MEDS: NOREPINEPHRINE 8 MG/D5W 250 ML 8 MG/250 ML BAG 9.38 MG IV CONT (16:32)
[2022-07-03 17:19] LABS: Hemoglobin A1C 5.9 % (<5.7)
--- NOTE | 2022-07-03 17:35 | PHAR ---
PT'S HOME MED Palbociclib [Ibrance] 125 mg capsule) VERIFIED BY PHARMACY
[2022-07-03] MEDS: INSULIN ASPART (*BKC) 100 UNITS/ML SUB-Q (17:58)
[2022-07-03 18:19] LABS: Glucose Point of Care 258 mg/dl (65-105)
[2022-07-03] MEDS: ATORVASTATIN 40 MG TABLET PO (20:41)
[2022-07-04] VITALS (65 sets, daily range): BP systolic 67–139; BP diastolic 43–86; PULSE 58–115; RESP 16–34; TEMP 35.1–37.1; O2SAT 80–99
[2022-07-04] MEDS: ALBUTEROL SULFATE NEB 2.5 MG/3 ML INH 5 MG INHALATION ×3 (00:03→08:20)
[2022-07-04] MEDS: IPRATROPIUM BR 0.02% INH SOLN 0.5 MG/2.5 ML VIAL INHALATION ×3 (00:03→08:20)
[2022-07-04 00:55] LABS: Glucose Point of Care 228 mg/dl (65-105)
[2022-07-04] MEDS: INSULIN ASPART (*BKC) 100 UNITS/ML SUB-Q ×2 (00:58→13:44)
[2022-07-04] MEDS: SODIUM CHLORIDE 0.9% IV 1,000 ML 125 ML IV CONT ×2 (00:59→08:26)
[2022-07-04] MEDS: AMIODARONE 360 MG/D5W 200 ML 360 MG/200 ML BAG 33.33 MG IV CONT ×2 (03:54→10:04)
[2022-07-04] MEDS: CENTRAL LINE FLUSH 10 ML IV PUSH ×3 (04:01→21:10)
[2022-07-04] MEDS: MORPHINE SULFATE (*CRX) 4 MG/ML INJ IV PUSH (05:08)
[2022-07-04 05:42] LABS: INR 1.5; Prothrombin Time 17.3 Seconds (11.1-14.7)
[2022-07-04 05:45] LABS: Basophils Percent Auto 0.2 % (0.2-1.2); Hemoglobin 7.5 g/dL (12.0-15.0); Immature Granulocyte Absolute 0.91 K/mm3 (0.00-0.031); Immature Granulocyte Percent A 4.3 % (0-0.5); Lymphocytes Absolute Auto 0.69 K/mm3 (0.9-3.2); Lymphocytes Percent Auto 3.2 % (18.3-44.2); Mean Corpuscular HGB Conc 37.3 g/dl (32-36); Mean Corpuscular Hemoglobin 38.9 pg (26-34); Mean Corpuscular Volume 104.1 fl (80-100); Mean Platelet Volume 12.1 fl (7.4-10.4); Monocytes Percent Auto 4.8 % (2.6-8.5); Neutrophils Absolute Auto 18.8 K/mm3 (1.3-6.7); Neutrophils Percent Auto 87.5 % (45.5-73.1); Nucleated Red Blood Cells Absolute Auto 0.1 K/mm3 (0.0-0.012); Nucleated Red Blood Cells Perc 0.7 % (0.0-0.2); Platelet Count Result 138 k/mm3 (150-375); Red Blood Count 1.93 M/mm3 (4.2-5.4); Red Cell Distribution Width 14.8 % (11.5-14.5); White Blood Count 21.4 K/mm3 (4.5-10.0)
[2022-07-04 05:48] LABS: Alanine Aminotransferase 79 U/L (6-35); Albumin Level 2.9 g/dL (3.5-5.1); Alkaline Phosphatase 64 U/L (38-126); Anion Gap 17 mmol/L (8-16); Aspartate Amino Transferase 155 U/L (14-36); Bilirubin,Total 1.2 mg/dL (0.2-1.3); Blood Urea Nitrogen 99 mg/dL (7-17); Calcium 6.3 mg/dL (8.4-10.2); Carbon Dioxide 21 mmol/L (22-30); Chloride 92 mmol/L (98-107); Estimated CRCL calculation 15 ml/min; Estimated Glomerular Filt Rate 12; Glucose 198 mg/dL (65-110); Magnesium 2.6 mg/dL (1.6-2.3); Potassium 3.7 mmol/L (3.4-5.0); Sodium 130 mmol/L (137-145)
[2022-07-04 05:57] LABS: Hematocrit 20.1 % (37.0-47.0)
[2022-07-04 06:48] LABS: Anisocytosis 1+ (NORMAL); Burr Cells 1+ (NORMAL); Crenated RBC 1+ (NORMAL); Macrocytosis 1+ (NORMAL); Ovalocytes 2+ (NORMAL); Platelet Estimate Decreased (Adequate)
[2022-07-04 08:13] LABS: Schistocytes None Seen (NORMAL)
[2022-07-04] MEDS: HEPARIN SOD/D5W 100 UNITS/ML 25,000 UNITS/250 ML BAG 11 UNITS IV CONT (08:28)
[2022-07-04] MEDS: CLOPIDOGREL BISULFATE 75 MG TABLET PO (08:44)
[2022-07-04] MEDS: ASPIRIN 81 MG ENTERIC TABLET PO (08:44)
[2022-07-04] MEDS: LETROZOLE (*CHEMO) 2.5 MG TABLET PO (08:44)
[2022-07-04] MEDS: SERTRALINE HCL 50 MG TABLET 100 MG PO (08:44)
[2022-07-04] MEDS: carvediloL 6.25 MG TABLET PO (08:44)
--- NOTE | 2022-07-04 09:23 | PM.CNNEP ---
Assessment and Plan Assessment and plan (1) Acute kidney injury superimposed on chronic kidney disease: Code(s): N17.9 - Acute kidney failure, unspecified; N18.9 - Chronic kidney disease, unspecified Status: Acute Assessment and Plan: Britney has chronic kidney disease . She has been sick several times in the past, 1 time severely ill when she had her TAVR and also has had infections. So these might have added up to some residual chronic kidney disease as she had acute kidney injury at those times as well. She also has hypertension and vascular disease which could be playing a role in her kidneys as well. Her baseline creatinine seems to be between 1.2 and 1.6. The patient has acute kidney injury as well. The patient probably has COVID pneumonia. This can cause renal failure in itself. She has also been very sick with intermittent hypotension which can also contribute to the high creatinine. Currently her blood pressure is doing well . She is on 5 mcg of Levophed. She did receive some IV fluid as well. there other causes of renal failure as well. Obstruction is always a possibility. Will get a renal ultrasound. Rhabdomyolysis is also possible as well Since she is on a statin. will get a CPK. Glomerulonephritis is less likely in this clinical scenario. Will check a urinalysis. Pre renal azotemia is possible as well will check urine electrolytes. At this point will concentrating on supportive care for the COVID, keeping the patient well hydrated but not too much, and supporting blood pressure. Will also check serology , CK, renal ultrasound, urine electrolytes and a fractional excretion of urea. (2) Acute respiratory failure due to COVID-19: Code(s): U07.1 - COVID-19; J96.00 - Acute respiratory failure, unspecified whether with hypoxia or hypercapnia Status: Acute Assessment and Plan: The patient likely has COVID-19 as 1 of the tests came back positive. He is getting supportive care with Decadron. (3) Hypotension: Code(s): I95.9 - Hypotension, unspecified Status: Acute Assessment and Plan: Blood pressure is doing better with the Levophed and a little bit of IV fluid. Will check a cortisol level (4) Pneumonia: Code(s): J18.9 - Pneumonia, unspecified organism Status: Acute Assessment and Plan: The patient is on BiPAP and has been hypoxic. She is getting supportive care (5) Atrial fibrillation with rapid ventricular response: Code(s): I48.91 - Unspecified atrial fibrillation Status: Acute Assessment and Plan: heart rate is a little bit on the high side. (6) Anemia: Code(s): D64.9 - Anemia, unspecified Status: Acute Assessment and Plan: Hemoglobin is low at 7.5. Will give Epogen. (7) S/P TAVR (transcatheter aortic valve replacement): Code(s): Z95.2 - Presence of prosthetic heart valve Status: Acute Assessment and Plan: Echo shows that this is functioning well. Dr. Mckeon is on the case. (8) Essential (primary) hypertension: Code(s): I10 - Essential (primary) hypertension Status: Acute Assessment and Plan: She is off her blood pressure meds. Plan Bicarbonate level is mildly low. Her anion gap did jump up to 17. Will check a lactate and beta hydroxybutyrate. Will keep an eye on this. History of Present Illness Reason for Consult Consult date: 07/04/22 Chief Complaint Chief complaint: covid History of Present Illness Narrative: Britney is a very pleasant 56-year-old lady who has multiple medical problems including metastatic breast cancer, history of aortic stenosis treated with a TAVR which is doing well, coronary artery disease status post stents x2, chronic kidney disease with a baseline creatinine of just below 2, hyperlipidemia, hypertension, pre diabetes, GERD, osteoarthritis, vitamin-D deficiency. The patient came i
--- NOTE | 2022-07-04 09:41 | WPDINTPN ---
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 She is on remdesivir and dexamethasone the usual doses.? She is also on empiric antibiotics for concern of secondary bacterial pneumonia.? She is immunocompromised due to her metastatic breast cancer. ABG today shows normal acid-base status with severe hypoxemia.? We will try prone positioning, change in BiPAP, intermittently using high-flow nasal cannula. Jul 04 plan: * prone positioning 18 hours prone and 6 hours normal position; now that she is intubated, remains hypoxemic with saturation drifting into lower 80s, this may help recruit alveoli * New ABG settings with f/u ABG AC rate 20 x 350, 100% 12 PEEP, peak airway pressures 43 so this is great. Repeat ABG at 13:30 * cefepime #3, vanco #3, azithromycin #4, dexamethasone #4, * infusions: norepinephrine, amiodarone, heparin drip, rocuronium, fentanyl * GI prophylaxis- protonix IV * vent management; increase PEEP to 15, permissive hypercapnia * Actemra, tocilizumab; from the perspective of her metastatic breast cancer, she is stable, using this medication for COVID is not a problem. She does have thick yellow secretions, so high likelihood of secondary bacterial infection. This is a contraindication for use Actemra as it can unleash minions of evil infection-causing humours, and lead to overwhelming sepsis. She has markers that suggest she may have a bacterial infection superimposed on COVID. Will continue to watch closely. *It is still concerning that she had a (+) COVID test before admission and 2 negative ones here. She appears to have COVID clinically. It would be a mistake to use Actemra if she does NOT have COVID. (2) CKD (chronic kidney disease) stage 3, GFR 30-59 ml/min: Qualifiers: Chronic kidney disease stage 3 subtype: stage 3a (GFR 45-59) Qualified Code(s): N18.31 - Chronic kidney disease, stage 3a Code(s): N18.30 - Chronic kidney disease, stage 3 unspecified Status: Acute Assessment and Plan: Worse; has baseline CKD, renal performance has worsened; BUN/creat 53/1.6 --> Jul 03 - 87/2.8 --> Jul 04 - BUN 99/ creat 3.8 Dr Godfrey is watching closely to see when she might need dialysis. Labs sent for evaluation of renal disease. Now that she is intubated, we may be able to increase her BP more easily. We were trying to keep her extra-dry to avoid intubation, the right strategy for COVID. We have more freedom with fluids, and she remains on norepinephrine for BP and renal perfusion. (3) Atrial fibrillation with rapid ventricular response: Code(s): I48.91 - Unspecified atrial fibrillation Status: Acute Assessment and Plan: This began the first night, rates up to 140s; IV amiodarone bolus, amiodarone drip, diltiazem, and she is receiving IV metoprolol. Her atrial fibrillation caused elevated troponins.? Her rhythm disturbance is secondary to respiratory distress, hypoxemia due to COVID pneumonia and possible secondary bacterial pneumonia. She is having rates around 100. Jul 04- rate is 100s after intubation (4) Breast cancer metastasized to multiple sites: Qualifiers: Laterality: unspecified laterality Qualified Code(s): C50.919 - Malignant neoplasm of unspecified site of unspecified female breast Code(s): C50.919 - Malignan
[2022-07-04 10:03] LABS: Partial Thromboplastin Time 194.1 SECONDS (22.3-36.8)
--- NOTE | 2022-07-04 10:35 | PM.IMPN ---
Progress Note: A&P Assessment and Plan (1) COVID: Code(s): U07.1 - COVID-19 Status: Acute Assessment and Plan: COVID positive at [facility] but negative here On admission. Possible superadded bacterial infection likely as well Started on Decadron Good did start remdesivir 07/01/2022 due to low GFR however GFR within limits for start of remdesivir today Will start remdesivir thoughl worsening respiratory status may be a candidate or of tocilizumab / baricitinib. within a short period of admission there is high suspicion for superadded bacterial infection /systemic infection and hence will be avoided at this time. 07/03: Creatinine worsened will hold remdesivir continue on Decadron. started on moderate does sliding scale insulin Continue to hold remdesivir due to worsening renal failure. (2) CKD (chronic kidney disease) stage 3, GFR 30-59 ml/min: Qualifiers: Chronic kidney disease stage 3 subtype: stage 3a (GFR 45-59) Qualified Code(s): N18.31 - Chronic kidney disease, stage 3a Code(s): N18.30 - Chronic kidney disease, stage 3 unspecified Status: Acute Assessment and Plan: -she has acute on chronic -her creatinine is 1.9 on admission with a baseline is typically 1.4-1.5. hold lisinopril Creatinine bumped up to 2.8. Likely due to diuresis. Hold Lasix MELANIE and CKD stage 3 baseline creatinine 1.21.5. Currently at 3.8. Nephrology consulted. Oliguric Renal ultrasound negative for hydronephrosis. Thompson catheter in place (3) Elevated troponin: Code(s): R77.8 - Other specified abnormalities of plasma proteins Status: Acute Assessment and Plan: -patient's troponin was 4.160 and is now 3.490. She is on a heparin drip for non ST-elevation MN. this is suspected to be related to her underlying COVID No chest pain -cardiology has been consulted.She follows up with cardiology with Dr. Sammy Mckeon.? She does have a history of coronary artery disease 2009 with stent to the LAD 2.25 x 18 and repeat stenting of the left circumflex artery InStent restenosis 2.5 x 18 Cypher 2009, most recent catheterization at [facility] 2019 and at that time underwent PCI to the LAD for InStent restenosis usingorsiro 2.25 x 22 stent with post dilatation using 2.5 mm noncompliant balloon distally and 3 mm proximally as well as stenting to the mid RCA using 2 stents 4 x 38 and 4x34 covering ostium and then TAVR using 23 Brenton valve also in 2019.? Her most recent echocardiogram June 19, 2021 a [facility] showed ejection fraction 52%, normal right ventricular size and systolic function, mild aortic regurgitation, mean gradient across the aortic valve 16. echo performed 07/01/2022: EF 40-45%, normal appearance and function of TAVR valve. (4) CHF exacerbation: Code(s): I50.9 - Heart failure, unspecified Status: Acute Assessment and Plan: -patient was given IV Lasix today per care clinician due to her pulmonary edema. -her lisinopril plus placed on hold due to the acute renal failure. Will continue diuresis. Chest x-ray this morning with worsening opacities bilaterally likely pulmonary edema Procalcitonin came back elevated at 88 as well broaden antibiotic coverage with vancomycin cefepime and azithromycin. Lasix 60 mg b.i.d. IV Which has been held Chest x-ray with stable bilateral airspace opacities. (5) CAD in false pass artery: Code(s): I25.10 - Atherosclerotic heart disease of false pass coronary artery without angina pectoris Status: Acute Assessment and Plan: -according to Cardiology note the patient is to continue with aspirin and Plavix. (6) Breast cancer metastasized to multiple sites: Qualifiers: Laterality: unspecified laterality Qualified Code(s): C50.919 - Malignant neoplasm of unspecified site of unspecified female breast Code(s): C50.919 - Malignant neoplasm of unspecified site of unspecified female breast Status: Acute
[2022-07-04 10:49] LABS: Creatine Kinase 217 U/L (30-135); Lactic Acid Reflex 1.1 mmol/L (0.7-2.0)
[2022-07-04 10:57] LABS: Complement C3 100 mg/dL (88-165)
[2022-07-04] MEDS: ETOMIDATE 20 MG/10 ML AMPUL IV PUSH (11:00)
[2022-07-04] MEDS: ROCURONIUM BROMIDE 50 MG/5 ML VIAL IV PUSH (11:00)
--- NOTE | 2022-07-04 11:08 | WPDPROCEDUR ---
Procedures Intubation Intubation Date: 07/04/22 Intubation Time: 10:55 Consent: Consent was given verbally by the patient and her by telephone per nursing prior to the procedure. Sedative: etomidate Mg given: 20 Paralytic: rocuronium Mg given: 50 ET tube size: 7.5 Tube secured depth (cm): 23 Tube placement confirmation: visualized tube passing through cords, equal breath sounds bilaterally and confirmation by capnometry Patient tolerated procedure: well Intubation complications: none Additional comments: She had dry oral membranes and thick yellow secretions in the airway consistent with bacterial pneumonia. She had a saturation of 70% when we started to bag her, and this improved to 79% at the moment of intubation. The glide scope was used to visualize the airway. Dr. Amaya from the ED was at the bedside with me for procedural back up. After placing the tube she had equal breath sounds. She was still very difficult to oxygenate, and her saturation stayed in the 70s for about 2 minutes as PEEP was increased tidal volume was increased. She then was able to oxygen a in the 90s. Portable chest x-ray was obtained which confirmed proper endotracheal tube placement.
[2022-07-04 11:20] LABS: Cortisol Random 9.71 ug/dL
--- NOTE | 2022-07-04 11:21 | PDONCCN ---
HPI - Date of Consult Date/Time: 07/04/22 11:21 This is a 56 y.o. female with metastatic breast cancer initially diagnosed [address] IIIC disease IDC of the left Breast ER/NM positive Her 2- she received neoadjuvant Doxorubucin Cyclphosphamide followed by Paclitaxel the Bilateral Mastectomy and axillary dissection and subsequently Radiation and Anastrozole completed 2011 recurrence to bones and lungs 2019 with Femara and abemaciclib in 01/28 changed to femara and ibrance in 08/30 She has been stable on this regimen on last clinic follow up She is also receiving Xgeva. She presents now with progressive respiratory failure due to Covid infection complicated by Bacterial Pneumonia requiring intubation. Requesting Physician: Shay Leslie MD Primary Care Provider: Phyllis Bolanos MD - Consult Narrative Narrative: Britney Cade is a 56 year old female Review of Systems - Neurologic Reports system reviewed and no additional complaints, except as documented, Reports hearing normal, Denies confusion, Denies syncope, Denies loss of vision, Denies numbness [facility] Medical History: Medical History (Last Updated 07/04/22 @ 09:30 by Elijah Godfrey MD) Acute kidney injury superimposed on chronic kidney disease Anxiety Aortic stenosis, moderate Breast cancer metastasized to multiple sites CAD in [place] artery Chronic congestive heart failure CKD (chronic kidney disease) stage 3, GFR 30-59 ml/min Dyslipidemia Essential (primary) hypertension GERD without esophagitis History of left breast cancer Pre-diabetes Stroke Unspecified osteoarthritis, unspecified site Vertigo Vitamin D deficiency Surgical History: Surgical History (Last Reviewed 07/04/22 @ 09:27 by Elijah Godfrey MD) History of bilateral mastectomy 2006 History of cardiac cath Onset Date: ~12/2006 History of coronary artery stent placement Onset Date: ~12/2009 -2009, 03/2020 History of transcatheter aortic valve replacement (TAVR) 03/2020 Family History: Family History (Last Reviewed 07/04/22 @ 09:27 by Elijah Godfrey MD) Other Heart disease Pulmonary stenosis - Social History Social History: Social History (Last Reviewed 07/04/22 @ 09:27 by Elijah Godfrey MD) Gender Identity: Gender identity (if verbalized by the patient): Female Alcohol Use: Alcohol intake: never Substance Use: Substance use: never Substance use type: does not use Others: Spiritual care concerns: No Smoking Status: Smoking status: Former smoker Second hand tobacco smoke exposure: No Smoking end date: 09/12/90 Smoking Pack-years: Smoking packs per day: 0.5 Smoking cigarettes per day: 10.0 Years smoked: 10 Smoking pack-years: 5.00 Comments: Additional smoking assessment comments: Former smoker - consumed 10 cigarettes daily Social Determinants of Health: Has the Lack of Transportation Kept You From Medical Appointments or From Getting Medications?: No Within the Past 12 Months, Were You Worried Whether Your Food Would Run Out Before You Got Money to Buy More?: Never True What is Your Housing Situation Today?: I Have Housing Are You Worried That in the Next 2 Months, You May Not Have Your Own Housing to Live In?: No Do You Have Trouble Paying Your Heating Or Electricity Bill?: No Do You Have Trouble Paying For Medicines?: No Are You Currently Unemployed and Looking for Work?: No Highest Level of Education Completed: Associate Degree Do You Have Trouble With Childcare or the Care of a Family Member?: No Exam - General intubated - Vital Signs Vital Signs - 24 hr 07/03/22 11:40 07/03/22 11:51 07/03/22 11:52 Temperature Pulse Rate 124 H 126 H 106 H Respiratory Rate 23 H 23 H Blood Pressure Pulse Oximetry 95 Oxygen Delivery BiPAP Fraction of Inspired Oxygen 07/03/22 12:00 07/03/22 12:00 1
[2022-07-04] MEDS: FENTANYL 2,500MCG/NS250ML(*CRX 2,500 MCG/250 ML BAG IV CONT (11:23)
[2022-07-04] MEDS: MIDAZOLAM 100MG/NS 100ML(*CRX) 100 MG/100 ML BAG IV CONT (11:24)
[2022-07-04 11:43] LABS: Alveolar/Arterial O2 Gradient 593.8 mmHg; Base Excess ABG -9.1 mEq/l (+/-2.0); Fractional Inspired Oxygen 100 %; HCO3 ABG 19.5 mEq/l (22.0-26.0); Oxygen Content ABG 11.3 %vol (16.0-22.0); PCO2 ABG 56.7 mmHg (35.0-45.0); PO2 ABG 62.5 mmHg (80.0-100.0); PO2 FiO2 Ratio Arterial Blood 0.63 %; Total Hemoglobin 9.7 g/dL (12.0-18.0)
[2022-07-04] MEDS: NOREPINEPHRINE 8 MG/D5W 250 ML 8 MG/250 ML BAG 54.38 MG IV CONT (12:00)
[2022-07-04 12:11] LABS: pH ABG 7.155 (7.350-7.450)
[2022-07-04 12:12] LABS: Device VENTILATOR; Modified Allen's Test Pass; Oxygen Saturation ABG 84.7 % (95.0-100.0); Oxyhemoglobin 82.2 % THb (90.0-100.0); Site Drawn RIGHT RADIAL
[2022-07-04 12:13] LABS: Arterial Blood Gas PEEP 10 cmH2O; Arterial Blood Gas Tidal Volume 400 ml; Arterial Blood Gas Vent Mode CMV; Arterial Blood Gas Ventilator rate 14 /MIN
[2022-07-04] MEDS: CISATRACURIUM BESYLATE 20 MG/10 ML VIAL 12.2 MG IV PUSH (12:16)
[2022-07-04] MEDS: CISATRACURIUM BESYLATE 200 MG in DEXTROSE 5% 80 ML 7.34 ML IV CONT ×2 (12:17→22:45)
[2022-07-04 12:23] LABS: Creatinine Urine 117.6 mg/dL; Total Protein Urine Random 25 mg/dL; Ur Ttl Prot Creatinine Ratio 0.21 mg/mg (0-0.20); Urea Random Urine 321 MG/DL
[2022-07-04 12:24] LABS: Add Urine Microscopic? YES; Amorphous Sediment Urine Few; Appearance Urine Cloudy (Clear); Bacteria Urine Trace /hpf; Bilirubin Urine Negative (Negative); Blood Urine 1+ (Negative); Color Urine Yellow (Yellow); Glucose Urine UA 1+ mg/dL (Negative); Ketones Urine Trace mg/dL (Negative); Leukocyte Esterase Ur Negative LEU/UL (NEGATIVE); Mucus Urine Rare /lpf; Nitrate Urine Negative (Negative); Protein Urine Negative (Negative); Sodium Urine Random 8 meq/L; Specific Grav Ur 1.026 (1.001-1.035); Squamous Epithelial Cell Urine Rare /hpf (Few); Urobilinogen Urine Negative mg/dL (<2.0)
[2022-07-04 13:17] LABS: Erythrocyte Sedimentation Rate 128 mm/hr (0-20)
[2022-07-04] MEDS: MINERAL OIL/WHITE PETROLATUM OINTMENT 1 APPLIC EACH EYE ×2 (13:42→21:10)
[2022-07-04] MEDS: PANTOPRAZOLE SODIUM IV 40 MG VIAL IV PUSH (13:45)
[2022-07-04] MEDS: EPOPROSTENOL SODIUM 0.5 MG VIAL 1 MG INHALATION ×2 (14:59→20:24)
[2022-07-04] MEDS: VASOPRESSIN INJ 100 UNITS in DEXTROSE 5% 95 ML IV CONT (15:08)
--- NOTE | 2022-07-04 15:20 | ECG_ITS ---
Measurements Intervals [place] Rate: 64 P: 81 GA: 231 QRS: 66 QRSD: 103 T: 152 QT: 418 QTc: 433 Interpretive Statements SINUS RHYTHM WITH FIRST DEGREE AV BLOCK POSSIBLE RIGHT VENTRICULAR CONDUCTION DELAY [RSR (QR) IN V1/V2] NONSPECIFIC ST & T-WAVE ABNORMALITY BORDERLINE ECG INTERPRETATION BASED ON A DEFAULT AGE OF 40 YEARS COMPARED TO ECG 07/02/2022 05:42:06 SINUS RHYTHM HAS REPLACED ATRIAL FIBRILLATION FIRST DEGREE AV BLOCK NOW PRESENT Electronically Signed On 07-05-2022 16:03:03 CDT by Nic Becker M.D.
[2022-07-04 15:53] LABS: Glucose Point of Care 383 mg/dl (65-105)
--- NOTE | 2022-07-04 15:58 | PM.PNCARD ---
Progress Note: A&P Assessment and Plan (1) Septic shock: Code(s): A41.9 - Sepsis, unspecified organism; R65.21 - Severe sepsis with septic shock Status: Acute Assessment and Plan: Pt has deteriorated and developed septic shock today. On antibiotics, Levophed and vasopressin (2) Atrial fibrillation with rapid ventricular response: Code(s): I48.91 - Unspecified atrial fibrillation Status: Acute Assessment and Plan: PAR w/ onset AFib RVR this admission due to COVID pneumonia and respiratory failure Anticoagulated with heparin. patient has converted to sinus rhythm today. Changed amiodarone to p.o. with parameters for bradycardia. (3) Acute respiratory failure due to COVID-19: Code(s): U07.1 - COVID-19; J96.00 - Acute respiratory failure, unspecified whether with hypoxia or hypercapnia Status: Acute Assessment and Plan: Respiratory failure due to COVID pneumonia Clinical deterioration 07/04/2022 requiring intubation (4) Bundle branch block: Code(s): I45.4 - Nonspecific intraventricular block Status: Acute Assessment and Plan: new bundle-branch block noted. May be due to acidosis versus ischemia correcting acidosis and will check troponins EKG 07/04/2022 at 4:28 p.m. shows sinus rhythm, nonspecific ST and T changes, no significant ischemia and no OR, personally reviewed (5) Anemia: Code(s): D64.9 - Anemia, unspecified Status: Acute Assessment and Plan: H&H continues to decline. Getting 1 unit of packed cells today Currently on triple drug therapy ( aspirin, Plavix and heparin ). Most recent coronary interventions were stenting in 2019 and the TAVR in 2020. I think it is best to discontinue the aspirin and Plavix. Serial H&H (6) Elevated troponin: Code(s): R77.8 - Other specified abnormalities of plasma proteins Status: Acute Assessment and Plan: H/O CAD and previous intervention. Significantly elevated troponin on admission up to 7.6 but no chest pain and no ischemic EKG changes. Due to hypoxia and AFib RVR continue current therapy for her CAD with anticoagulation, statin etc. (7) S/P TAVR (transcatheter aortic valve replacement): Code(s): Z95.2 - Presence of prosthetic heart valve Status: Acute Assessment and Plan: Normal prosthetic valve function. Plan Subjective Date/time seen: 07/04/22 15:58 Interval history: Follow-up visit in this 56-year-old lady with: New onset a fib RVR. Admitted w/ respiratory failure due to COVID. Elevated troponins, up to 7.6, due hypoxemia and also rapid atrial fib. She was started on IV amiodarone. History of coronary artery disease with previous PCI and history of TAVR 2 years ago. H/O metastatic breast cancer. Echo this admission: EF 40-45%, normal appearance and function of TAVR valve. Mild LV enlargement. 07/02/2022: Still tachycardic. Not in any significant distress. Troponin levels were significantly elevated following admission. This is likely the result of the hypoxemia and also rapid atrial fib. No ischemic evaluation needed. Added metoprolol for rate control and continuous IV heparin. Date of Service 07/03/2022: Feels a little better. Remains on BiPAP, FiO2 100% for much of morning, now 90%. Heart rate 90-110, occ up to 120 on IV amio + metoprolol. I's and O's balanced. Date of service 07/04/2022: Patient unfortunately deteriorated, requiring intubation and pronation. She also became hypotensive, requiring Levophed and now vasopressin. She has a metabolic acidosis. She became hypothermic with a body temperature of 94?. Surprisingly she converted to sinus rhythm. However, later this afternoon she developed widening of her QRS complex with a new BB. She is anemic with hematocrit 20 and is going to get a unit of packed cells. She remains on heparin drip. Poppy corona
[2022-07-04] MEDS: NOREPINEPHRINE 8 MG/D5W 250 ML 8 MG/250 ML BAG 56.25 MG IV CONT ×2 (16:36→21:09)
[2022-07-04] MEDS: SODIUM CHLORIDE 0.9% IV 500 ML IV CONT (16:36)
[2022-07-04 16:59] LABS: Alveolar/Arterial O2 Gradient 599.7 mmHg; Base Excess ABG -12.7 mEq/l (+/-2.0); Carboxyhemoglobin 0.2 % THb (0-2.0); Fractional Inspired Oxygen 100 %; HCO3 ABG 16.1 mEq/l (22.0-26.0); Methemoglobin ABG 0.4 %THb (0-1.5); Oxygen Content ABG 8.4 %vol (16.0-22.0); PCO2 ABG 52.9 mmHg (35.0-45.0); PO2 ABG 60.4 mmHg (80.0-100.0); Reduced Hemoglobin 19.3 %THb (0-5.0)
[2022-07-04 17:00] LABS: Oxygen Saturation ABG 81.1 % (95.0-100.0)
[2022-07-04 17:01] LABS: Device VENTILATOR; Site Drawn ARTLINE
[2022-07-04 17:02] LABS: Arterial Blood Gas PEEP 12 cmH2O; Arterial Blood Gas Vent Mode CMV; Arterial Blood Gas Ventilator rate 20 /MIN; Oxyhemoglobin 80.1 % THb (90.0-100.0); Total Hemoglobin 7.4 g/dL (12.0-18.0); pH ABG 7.101 (7.350-7.450)
[2022-07-04 17:03] LABS: Arterial Blood Gas Tidal Volume 350 ml
[2022-07-04 17:07] LABS: Lactic Acid Reflex 1.2 mmol/L (0.7-2.0)
--- NOTE | 2022-07-04 17:08 | WPDPROCEDUR ---
Procedures Arterial Line Arterial Line Date: 07/04/22 Arterial Line Time: 16:25 Discussed with the patient/family/POA, the placement of an arterial catheter, including its clinical necessity/indication and associated potential risks, benefits and alternatives.: Yes Patient/family/POA and/or understands and acknowledges the need to proceed with the arterial catheter insertion as an important element of the patient's clinical management.: Yes Time Out Performed: Yes Patient Position: supine It Technical Support Specialist Prep: sterile gown Site: right Site Prep: sterile drape and other (betadine) Skin Anesthesia: 1% lidocaine Technique used: guide wire technique Size (Gauge): other ( from the arterial line kit) Length: 12 cm Closure/Dressing: suture and transparent dressing Patient tolerated procedure: well Complications: none Additional comments: Dr Riggs from the ED was assisting and supervising me.
[2022-07-04] MEDS: SODIUM BICARBONATE 8.4% 50 MEQ/50 ML SYRINGE IV PUSH ×2 (17:37→23:42)
[2022-07-04] MEDS: INSULIN HUMAN REGULAR (*BKC) 100 UNITS/ML 10 UNITS IV PUSH (17:38)
[2022-07-04] MEDS: SODIUM BICARBONATE 8.4% 150 MEQ in WATER, STERILE FOR INJECTION 950 ML 50 MEQ IV CONT (17:38)
[2022-07-04 17:59] LABS: Glucose Point of Care 419 mg/dl (65-105)
[2022-07-04 18:37] LABS: Partial Thromboplastin Time > 200.0 SECONDS (22.3-36.8)
[2022-07-04 19:57] LABS: Glucose Point of Care 381 mg/dl (65-105)
[2022-07-04 20:12] LABS: Hematocrit 23.3 % (37.0-47.0); Hemoglobin 8.4 g/dL (12.0-15.0)
--- NOTE | 2022-07-04 20:25 | PCRCNOTE ---
Found Flolan syringe pump unplugged and tape around the cord attached to the pump. Equipment switched out with replacement pump.
[2022-07-04 20:55] LABS: Alveolar/Arterial O2 Gradient 562.1 mmHg; Base Excess ABG -9.9 mEq/l (+/-2.0); Carboxyhemoglobin 0.4 % THb (0-2.0); Fractional Inspired Oxygen 100 %; HCO3 ABG 18.7 mEq/l (22.0-26.0); Methemoglobin ABG 0.3 %THb (0-1.5); Oxygen Content ABG 11.3 %vol (16.0-22.0); Oxygen Saturation ABG 94.8 % (95.0-100.0); Oxyhemoglobin 94.3 % THb (90.0-100.0); PCO2 ABG 56.1 mmHg (35.0-45.0); PO2 ABG 94.8 mmHg (80.0-100.0); PO2 FiO2 Ratio Arterial Blood 0.95 %; Total Hemoglobin 8.4 g/dL (12.0-18.0)
[2022-07-04 20:58] LABS: Device VENTILATOR; Site Drawn ARTLINE
[2022-07-04 20:59] LABS: Arterial Blood Gas PEEP 15 cmH2O; Arterial Blood Gas Tidal Volume 350 ml; Arterial Blood Gas Vent Mode CMV; Arterial Blood Gas Ventilator rate 20 /MIN
--- NOTE | 2022-07-04 23:17 | PC.NURSE ---
Dr Parrish informed of no urine output. Updated on status of patient. Orders received.
[2022-07-04] MEDS: BUMETANIDE INJ 1 MG/4 ML VIAL 4 MG IV PUSH (23:42)
[2022-07-04 23:55] LABS: Glucose Point of Care 355 mg/dl (65-105)
[2022-07-05] VITALS (44 sets, daily range): BP systolic 101–141; BP diastolic 33–60; PULSE 68–79; RESP 20–22; TEMP 35.5–36.9; O2SAT 86–99; BMI 34.0
[2022-07-05 00:22] LABS: Alveolar/Arterial O2 Gradient 560.6 mmHg; Carboxyhemoglobin 0.3 % THb (0-2.0); Fractional Inspired Oxygen 100 %; HCO3 ABG 20.1 mEq/l (22.0-26.0); Methemoglobin ABG 0.3 %THb (0-1.5); Oxygen Content ABG 12.7 %vol (16.0-22.0); Oxygen Saturation ABG 95.8 % (95.0-100.0); PCO2 ABG 53.9 mmHg (35.0-45.0); PO2 ABG 98.5 mmHg (80.0-100.0); PO2 FiO2 Ratio Arterial Blood 0.99 %; Reduced Hemoglobin 4.4 %THb (0-5.0); Total Hemoglobin 9.4 g/dL (12.0-18.0)
[2022-07-05] MEDS: INSULIN ASPART (*BKC) 100 UNITS/ML SUB-Q ×3 (00:27→08:13)
[2022-07-05 00:28] LABS: Device VENTILATOR; Site Drawn ARTLINE; pH ABG 7.189 (7.350-7.450)
[2022-07-05 00:29] LABS: Arterial Blood Gas PEEP 15 cmH2O; Arterial Blood Gas Tidal Volume 350 ml; Arterial Blood Gas Vent Mode CMV; Arterial Blood Gas Ventilator rate 22 /MIN
[2022-07-05] MEDS: NOREPINEPHRINE 8 MG/D5W 250 ML 8 MG/250 ML BAG 56.25 MG IV CONT ×4 (01:01→15:19)
[2022-07-05] MEDS: EPOPROSTENOL SODIUM 0.5 MG VIAL 1 MG INHALATION ×3 (03:05→15:16)
[2022-07-05 03:52] LABS: Partial Thromboplastin Time > 200.0 SECONDS (22.3-36.8)
[2022-07-05 04:38] LABS: Basophils Absolute Auto 0.1 K/mm3 (0.0-0.1); Basophils Percent Auto 0.4 % (0.2-1.2); Eosinophils Percent Auto 0.1 % (0-4.4); Hemoglobin 7.7 g/dL (12.0-15.0); Immature Granulocyte Absolute 2.01 K/mm3 (0.00-0.031); Immature Granulocyte Percent A 7.9 % (0-0.5); Lymphocytes Absolute Auto 0.96 K/mm3 (0.9-3.2); Lymphocytes Percent Auto 3.8 % (18.3-44.2); Mean Platelet Volume 12.5 fl (7.4-10.4); Monocytes Absolute Auto 1.6 K/mm3 (0.1-0.6); Monocytes Percent Auto 6.2 % (2.6-8.5); Neutrophils Absolute Auto 20.8 K/mm3 (1.3-6.7); Neutrophils Percent Auto 81.6 % (45.5-73.1); Nucleated Red Blood Cells Absolute Auto 0.5 K/mm3 (0.0-0.012); Nucleated Red Blood Cells Perc 1.8 % (0.0-0.2); Platelet Count Result 134 k/mm3 (150-375); Red Blood Count 2.08 M/mm3 (4.2-5.4); Red Cell Distribution Width 17.2 % (11.5-14.5); White Blood Count 25.5 K/mm3 (4.5-10.0)
[2022-07-05 05:07] LABS: Prothrombin Time 21.9 Seconds (11.1-14.7)
[2022-07-05 05:09] LABS: Hematocrit 20.8 % (37.0-47.0)
[2022-07-05 05:13] LABS: Alanine Aminotransferase 87 U/L (6-35); Albumin Level 2.6 g/dL (3.5-5.1); Alkaline Phosphatase 73 U/L (38-126); Anion Gap 20 mmol/L (8-16); Aspartate Amino Transferase 174 U/L (14-36); Bilirubin,Total 0.8 mg/dL (0.2-1.3); Blood Urea Nitrogen 102 mg/dL (7-17); Calcium 5.3 mg/dL (8.4-10.2); Carbon Dioxide 22 mmol/L (22-30); Chloride 83 mmol/L (98-107); Estimated CRCL calculation 12 ml/min; Estimated Glomerular Filt Rate 9; Glucose 310 mg/dL (65-110); Magnesium 2.4 mg/dL (1.6-2.3); Potassium 3.9 mmol/L (3.4-5.0); Sodium 125 mmol/L (137-145)
[2022-07-05 05:14] LABS: Poikilocytosis 2+ (NORMAL)
[2022-07-05 05:30] LABS: Schistocytes None Seen (NORMAL)
[2022-07-05 05:52] LABS: Alveolar/Arterial O2 Gradient 500.6 mmHg; Base Excess ABG -6.9 mEq/l (+/-2.0); Carboxyhemoglobin 0.1 % THb (0-2.0); Fractional Inspired Oxygen 90 %; HCO3 ABG 21.6 mEq/l (22.0-26.0); Methemoglobin ABG 0.3 %THb (0-1.5); Oxygen Saturation ABG 93.1 % (95.0-100.0); Oxyhemoglobin 93.1 % THb (90.0-100.0); PCO2 ABG 58.1 mmHg (35.0-45.0); PO2 ABG 81.6 mmHg (80.0-100.0); PO2 FiO2 Ratio Arterial Blood 0.91 %; Reduced Hemoglobin 6.5 %THb (0-5.0); Total Hemoglobin 10.6 g/dL (12.0-18.0)
[2022-07-05] MEDS: LEVOTHYROXINE SODIUM INJ 100 MCG/5 ML VIAL 50 MCG IV PUSH (05:53)
[2022-07-05] MEDS: CENTRAL LINE FLUSH 10 ML IV PUSH ×2 (05:53→14:02)
[2022-07-05 05:54] LABS: Arterial Blood Gas Ventilator rate 22 /MIN; Device VENTILATOR; Site Drawn ARTLINE; pH ABG 7.188 (7.350-7.450)
[2022-07-05 05:55] LABS: Arterial Blood Gas PEEP 15 cmH2O; Arterial Blood Gas Tidal Volume 350 ml; Arterial Blood Gas Vent Mode CMV
--- NOTE | 2022-07-05 06:02 | PM.PNNEP ---
Progress Note: A&P Assessment and Plan (1) Acute kidney injury superimposed on chronic kidney disease: Code(s): N17.9 - Acute kidney failure, unspecified; N18.9 - Chronic kidney disease, unspecified Status: Acute Assessment and Plan: Britney has chronic kidney disease . She has been sick several times in the past, 1 time severely ill when she had her TAVR and also has had infections. So these might have added up to some residual chronic kidney disease as she had acute kidney injury at those times as well. She also has hypertension and vascular disease which could be playing a role in her kidneys as well. Her baseline creatinine seems to be between 1.2 and 1.6. The patient has acute kidney injury as well. Renal ultrasound was normal CPK is minimally low Urine electrolytes are pre renal. She has some protein in the urine, not a lot. Urinalysis shows both red cells and white cells. This is most likely due to hypotension, shock, infection, COVID. Cortisol level was 9.7 but she is already on steroids. The patient probably has COVID pneumonia. This can cause renal failure in itself. She is hypotensive which can also damage the kidneys. This is what is causing the pre renal picture. Other infection is possible as well. Will get 2 sets of blood cultures and urine culture since she has pyuria. She is already on broad-spectrum antibiotics. No sign of obstruction or rhabdomyolysis. Glomerulonephritis is less likely in this clinical scenario. This does not usually come with hypotension. Serology is pending for completeness but I doubt if this is going on. She is already on steroids anyway. Continue supportive care. BUN and creatinine are high and climbing. She would not tolerate dialysis right now in this condition. CRRT would be the only option. We do not do this at this hospital. (2) Acute respiratory failure due to COVID-19: Code(s): U07.1 - COVID-19; J96.00 - Acute respiratory failure, unspecified whether with hypoxia or hypercapnia Status: Acute Assessment and Plan: The patient likely has COVID-19 as 1 of the tests came back positive. He is getting supportive care with Decadron. (3) Hypotension: Code(s): I95.9 - Hypotension, unspecified Status: Acute Assessment and Plan: Blood pressure is hanging in there at about 120. She is still on 3 pressors however (4) Pneumonia: Code(s): J18.9 - Pneumonia, unspecified organism Status: Acute Assessment and Plan: Now intubated, prone, Nimbex, Flolan. (5) Atrial fibrillation with rapid ventricular response: Code(s): I48.91 - Unspecified atrial fibrillation Status: Acute Assessment and Plan: Heart rate 71 (6) Anemia: Code(s): D64.9 - Anemia, unspecified Status: Acute Assessment and Plan: Hemoglobin is 7.5 last night and she got a unit of blood so it joan to 8.4 but now the hemoglobin is back down to 7.7. She has no blood in her stools per nursing. Will check haptoglobin. (7) S/P TAVR (transcatheter aortic valve replacement): Code(s): Z95.2 - Presence of prosthetic heart valve Status: Acute Assessment and Plan: Echo shows that this is functioning well. Dr. Mckeon is on the case. (8) Essential (primary) hypertension: Code(s): I10 - Essential (primary) hypertension Status: Acute Assessment and Plan: She is off her blood pressure meds. Plan Bicarbonate level is 22 Subjective Date/time seen: 07/05/22 06:02 Interval history: Britney is sicker. Yesterday she required intubation. Eventually she developed hypotension and is now on 3 pressors. She also became more hypoxic and so she is on 90% oxygen, Nimbex, Flolan, and is prone. Her situation continued to worsen until about 3:00 a.m. and then her blood pressure came up a little bit and they were able to wean a little bit of the Franky-Synephrine.
[2022-07-05 07:59] LABS: Glucose Point of Care 311 mg/dl (65-105)
[2022-07-05] MEDS: MINERAL OIL/WHITE PETROLATUM OINTMENT 1 APPLIC EACH EYE (08:04)
[2022-07-05] MEDS: PANTOPRAZOLE SODIUM IV 40 MG VIAL IV PUSH (08:04)
[2022-07-05] MEDS: FERROUS SULFATE 324 MG TABLET PO (08:05)
[2022-07-05] MEDS: CHOLECALCIFEROL 1,000 UNITS TABLET 2000 UNITS PO (08:05)
[2022-07-05] MEDS: CYANOCOBALAMIN 1,000 MCG TABLET 1000 MCG PO (08:05)
[2022-07-05] MEDS: AMIODARONE HCL 200 MG TABLET FEED TUBE (08:06)
[2022-07-05] MEDS: MULTIVITAMINS THERAPEUTIC TAB (*BKC) 1 TABLET PO (08:07)
--- NOTE | 2022-07-05 09:00 | WPDINTPN ---
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 She is on remdesivir and dexamethasone the usual doses.? She is also on empiric antibiotics for concern of secondary bacterial pneumonia.? She is immunocompromised due to her metastatic breast cancer. ABG today shows normal acid-base status with severe hypoxemia.? We will try prone positioning, change in BiPAP, intermittently using high-flow nasal cannula. Jul 05 plan: * continue prone positioning 18 hours prone and 6 hours normal position; * vent management; * rate 24 x 350, 80% 15 PEEP, peak airway pressures 55 * cefepime #3, vanco #3, azithromycin #4, dexamethasone #4, * infusions: norepinephrine, phenylephrine, vasopressin, cisatracurium, versed, fentanyl, sodium bicarbonate * GI prophylaxis- protonix IV * insulin drip for glucose over 500 * transfuse 1 unit packed red cells for H&H 7.7 and 20.8 * 3% saline for hyponatremia * possible transfer to tertiary facility, possible CRRT/ ECMO (2) CKD (chronic kidney disease) stage 3, GFR 30-59 ml/min: Qualifiers: Chronic kidney disease stage 3 subtype: stage 3a (GFR 45-59) Qualified Code(s): N18.31 - Chronic kidney disease, stage 3a Code(s): N18.30 - Chronic kidney disease, stage 3 unspecified Status: Acute Assessment and Plan: Anuric. Worse; has baseline CKD, renal performance has worsened; BUN/creat 53/1.6 --> Jul 03 - 87/2.8 --> Jul 04 - BUN 99/ creat 3.8 -> Jul 05 - 101/4.7. Labs sent for evaluation of renal disease. (3) Atrial fibrillation with rapid ventricular response: Code(s): I48.91 - Unspecified atrial fibrillation Status: Acute Assessment and Plan: Resolved Jul 04. Now in NSR. This began the first night, rates up to 140s; IV amiodarone bolus, amiodarone drip, diltiazem, and she is receiving IV metoprolol. Her atrial fibrillation caused elevated troponins.? Her rhythm disturbance is secondary to respiratory distress, hypoxemia due to COVID pneumonia and possible secondary bacterial pneumonia. She is having rates around 100. Jul 04- rate is 100s after intubation went into sinus Jul 05 -remains in NSR rate 70 with BBB (4) Breast cancer metastasized to multiple sites: Qualifiers: Laterality: unspecified laterality Qualified Code(s): C50.919 - Malignant neoplasm of unspecified site of unspecified female breast Code(s): C50.919 - Malignant neoplasm of unspecified site of unspecified female breast Status: Acute Assessment and Plan: Longstanding, managed by Dr. Arauz; She has metastatic breast cancer with bone involvement January 04, 2019 Initial diagnosis September 2006 T3 N3 M0 stage IIIC infiltrative ductal carcinoma left breast ER and VA positive, HER-2/eu negative Sep 2006; neoadjuvant chemotherapy with Adriamycin, Cytoxan x4, Taxol x4, finished May 2007.;axillary LN dissection May 2007, radiation completed Jul 2007, Femara and Verzenio started January 2019 for met breast cancer. This is a stable problem; this may not increase her risk for opportunistic infections. She may be a candidate for starting tocilizumab/Actemra for COVID. Oncologist said that she could have Actemra if needed from an oncology standpoint, but is not weighing in from the ID standpoint. He said to treat COVID as we would any one
--- NOTE | 2022-07-05 10:05 | PM.PNCARD ---
Progress Note: A&P Assessment and Plan (1) Septic shock: Code(s): A41.9 - Sepsis, unspecified organism; R65.21 - Severe sepsis with septic shock Status: Acute Plan 56-year-old female with coronary artery disease, previous TAVR aortic valve replacement and metastatic breast cancer. Sadly she now appears to have severe COVID pneumonia has required ventilator support and is doing very poorly. Prognosis appears to be grim in this setting. Anti-platelet therapy was appropriately discontinued over the weekend. She continues to be significantly anemic and acidotic this morning. Troponin levels continue to be elevated not sure why those are being checked repeatedly. No specific cardiac recommendations to make today. Sammy Mckeon MD [facility] Subjective Date/time seen: Date of service: 07/05/22 10:05 Interval history: Follow-up visit in this 56-year-old lady with: New onset a fib RVR. Admitted w/ respiratory failure due to COVID. Elevated troponins, up to 7.6, due hypoxemia and also rapid atrial fib. She was started on IV amiodarone. History of coronary artery disease with previous PCI and history of TAVR 2 years ago. H/O metastatic breast cancer. Echo this admission: EF 40-45%, normal appearance and function of TAVR valve. Mild LV enlargement. 07/02/2022: Still tachycardic. Not in any significant distress. Troponin levels were significantly elevated following admission. This is likely the result of the hypoxemia and also rapid atrial fib. No ischemic evaluation needed. Added metoprolol for rate control and continuous IV heparin. Date of Service 07/03/2022: Feels a little better. Remains on BiPAP, FiO2 100% for much of morning, now 90%. Heart rate 90-110, occ up to 120 on IV amio + metoprolol. I's and O's balanced. Date of service 07/04/2022: Patient unfortunately deteriorated, requiring intubation and pronation. She also became hypotensive, requiring Levophed and now vasopressin. She has a metabolic acidosis. She became hypothermic with a body temperature of 94?. Surprisingly she converted to sinus rhythm. However, later this afternoon she developed widening of her QRS complex with a new BB. She is anemic with hematocrit 20 and is going to get a unit of packed cells. She remains on heparin drip. No melena. Date of service 07/05/2022: Patient continued to deteriorate yesterday requiring intubation and mechanical ventilator support. Being treated as severe COVID pneumonia. She is anemic and significantly acidotic. Currently intubated sedated in the ICU. Exam Const: Other: Intubated sedated white female ICU room 7. HENMT: Mouth: Yes moist mucous membranes Eyes: Sclera: sclerae normal Neck: Neck: supple Resp: Other: Coarse breath sounds on ventilator support Cardio: Rate: regular rate Rhythm: regular rhythm Other: No murmur no gallop GI: GI Palp: Yes Soft to palpation Skin: General skin exam: normal color Neuro: Other: Sedated on ventilator Objective Data Vital Signs Vital Signs: Vital Signs - 24 hr 07/04/22 10:13 07/04/22 11:07 07/04/22 11:18 Temperature Pulse Rate 102 H 98 Respiratory Rate Blood Pressure 98/54 L 67/51 L Pulse Oximetry Oxygen Delivery Fraction of Inspired Oxygen 100 07/04/22 11:23 07/04/22 11:24 07/04/22 11:26 Temperature Pulse Rate 108 H 113 H 107 H Respiratory Rate 16 16 Blood Pressure 139/73 Pulse Oximetry Oxygen Delivery Fraction of Inspired Oxygen 07/04/22 12:06 07/04/22 12:17 07/04/22 11:05 Temperature Pulse Rate 113 H 111 H 109 H Respiratory Rate 16 16 Blood Pressure 121/78 Pulse Oximetry 87 L 94 Oxygen Delivery Mechanical Ventilation Fraction of Inspired Oxygen 100 100 07/04/22 11:10 07/04/22 12:55 07/04/22 12:00 Temperature Pulse Rate 109 H 106 H 107 H Respiratory Rate 16 20 Blood Pressure 117/71 Pulse Oximetry Oxygen Delivery Fraction
[2022-07-05 10:43] LABS: Sodium 115 mmol/L (137-145)
[2022-07-05 10:53] LABS: Anion Gap 17 mmol/L (8-16); Blood Urea Nitrogen 101 mg/dL (7-17); Calcium 4.6 mg/dL (8.4-10.2); Carbon Dioxide 20 mmol/L (22-30); Chloride 78 mmol/L (98-107); Estimated CRCL calculation 13 ml/min; Estimated Glomerular Filt Rate 10; Glucose 520 mg/dL (65-110); Potassium 3.9 mmol/L (3.4-5.0); Sodium 115 mmol/L (137-145)
[2022-07-05 11:05] LABS: Partial Thromboplastin Time > 200.0 SECONDS (22.3-36.8)
[2022-07-05 11:14] LABS: Vancomycin Trough 35.9 ug/mL (10.0-20.0)
[2022-07-05 11:30] LABS: Lactate Dehydrogenase 2247 U/L (120-246)
[2022-07-05 11:42] LABS: Phosphorus 8.6 mg/dL (2.5-4.5)
[2022-07-05 11:43] LABS: Magnesium 2.2 mg/dL (1.6-2.3)
[2022-07-05 12:00] LABS: Glucose Point of Care 312 mg/dl (65-105)
[2022-07-05] MEDS: INSULIN HUMAN REGULAR (*BKC) 100 UNITS in SODIUM CHLORIDE 0.9% IV 99 ML IV CONT (12:17)
[2022-07-05] MEDS: SODIUM CHLORIDE 3% 180 ML 45 ML IVPB (12:21)
--- NOTE | 2022-07-05 13:09 | PM.IMPN ---
Progress Note: A&P Assessment and Plan (1) COVID: Code(s): U07.1 - COVID-19 Status: Acute Assessment and Plan: COVID positive at [facility] but negative here On admission. Possible superadded bacterial infection likely as well Started on Decadron Good did start remdesivir 07/01/2022 due to low GFR however GFR within limits for start of remdesivir today Will start remdesivir thoughl worsening respiratory status may be a candidate or of tocilizumab / baricitinib. within a short period of admission there is high suspicion for superadded bacterial infection /systemic infection and hence will be avoided at this time. 07/03: Creatinine worsened will hold remdesivir continue on Decadron. started on moderate does sliding scale insulin Continue to hold remdesivir due to worsening renal failure. (2) CKD (chronic kidney disease) stage 3, GFR 30-59 ml/min: Qualifiers: Chronic kidney disease stage 3 subtype: stage 3a (GFR 45-59) Qualified Code(s): N18.31 - Chronic kidney disease, stage 3a Code(s): N18.30 - Chronic kidney disease, stage 3 unspecified Status: Acute Assessment and Plan: -she has acute on chronic -her creatinine is 1.9 on admission with a baseline is typically 1.4-1.5. hold lisinopril Creatinine bumped up to 2.8. Likely due to diuresis. Hold Lasix MELANIE and CKD stage 3 baseline creatinine 1.21.5. Currently at 3.8. Nephrology consulted. Oliguric Renal ultrasound negative for hydronephrosis. Thompson catheter in place (3) Elevated troponin: Code(s): R77.8 - Other specified abnormalities of plasma proteins Status: Acute Assessment and Plan: -patient's troponin was 4.160 and is now 3.490. She is on a heparin drip for non ST-elevation RI. this is suspected to be related to her underlying COVID No chest pain -cardiology has been consulted.She follows up with cardiology with Dr. Sammy Mckeon.? She does have a history of coronary artery disease 2009 with stent to the LAD 2.25 x 18 and repeat stenting of the left circumflex artery InStent restenosis 2.5 x 18 [place] 2009, most recent catheterization at [facility] 2019 and at that time underwent PCI to the LAD for InStent restenosis usingorsiro 2.25 x 22 stent with post dilatation using 2.5 mm noncompliant balloon distally and 3 mm proximally as well as stenting to the mid RCA using 2 stents 4 x 38 and 4x34 covering ostium and then TAVR using 23 [place] valve also in 2019.? Her most recent echocardiogram June 19, 2021 a [facility] showed ejection fraction 52%, normal right ventricular size and systolic function, mild aortic regurgitation, mean gradient across the aortic valve 16. echo performed 07/01/2022: EF 40-45%, normal appearance and function of TAVR valve. 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 -her lisinopril plus placed on hold due to the acute renal failure. Will continue diuresis. Chest x-ray this morning with worsening opacities bilaterally likely pulmonary edema Procalcitonin came back elevated at 88 as well broaden antibiotic coverage with vancomycin cefepime and azithromycin. Lasix 60 mg b.i.d. IV Which has been held Chest x-ray with stable bilateral airspace opacities. (5) CAD in [place] artery: Code(s): I25.10 - Atherosclerotic heart disease of [place] coronary artery without angina pectoris Status: Acute Assessment and Plan: -according to Cardiology note the patient is to continue with aspirin and Plavix. (6) Breast cancer metastasized to multiple sites: Qualifiers: Laterality: unspecified laterality Qualified Code(s): C50.919 - Malignant neoplasm of unspecified site of unspecified female breast Code(s): C50.919 - Malignant neoplasm of unspecified site of unspecified female breast Status: Acute
[2022-07-05 13:18] LABS: Glucose Point of Care 305 mg/dl (65-105)
[2022-07-05] MEDS: CISATRACURIUM BESYLATE 200 MG in DEXTROSE 5% 80 ML 6.11 ML IV CONT (14:00)
[2022-07-05] MEDS: SODIUM BICARBONATE 8.4% 150 MEQ in WATER, STERILE FOR INJECTION 950 ML 50 MEQ IV CONT (15:21)
--- NOTE | 2022-07-05 16:09 | PM.TDS ---
Transfer Discharge Sum: Prov Provider Date of admission: 07/02/22 10:55 Primary care physician: Phyllis Bolanos MD Admitting clinician: Sammy López MD Consults: 07/01/22 07:37 Consult to Physician Routine Comment: Consulting Provider: Nic Becker Reason for consultation: NSTEMI Has provider been notified: Yes 07/03/22 Consult to Physician Routine Comment: Consulting Provider: Mason Valdovinos I. Reason for consultation: Followed by [facility] as primary oncologist Has provider been notified: Yes 07/04/22 Consult to Physician Routine Comment: Consulting Provider: Elijah Godfrey bilingual call center representative/MD group to consult: nephrology Reason for consultation: increasing creatinine/BUN Has provider been notified: Yes DS: Admitting Diagnosis Discharge Date 07/05/2022 Admitting Diagnosis shortness of breath DS: Discharge Diagnosis Discharge Diagnosis (1) COVID: Code(s): U07.1 - COVID-19 Status: Acute (2) CKD (chronic kidney disease) stage 3, GFR 30-59 ml/min: Qualifiers: Chronic kidney disease stage 3 subtype: stage 3a (GFR 45-59) Qualified Code(s): N18.31 - Chronic kidney disease, stage 3a Code(s): N18.30 - Chronic kidney disease, stage 3 unspecified Status: Acute (3) Elevated troponin: Code(s): R77.8 - Other specified abnormalities of plasma proteins Status: Acute (4) CHF exacerbation: Code(s): I50.9 - Heart failure, unspecified Status: Acute (5) CAD in [place] artery: Code(s): I25.10 - Atherosclerotic heart disease of [place] coronary artery without angina pectoris Status: Acute (6) Breast cancer metastasized to multiple sites: Qualifiers: Laterality: unspecified laterality Qualified Code(s): C50.919 - Malignant neoplasm of unspecified site of unspecified female breast Code(s): C50.919 - Malignant neoplasm of unspecified site of unspecified female breast Status: Acute (7) Anxiety: Code(s): F41.9 - Anxiety disorder, unspecified Status: Acute (8) Dyslipidemia: Code(s): E78.5 - Hyperlipidemia, unspecified Status: Acute (9) Essential (primary) hypertension: Code(s): I10 - Essential (primary) hypertension Status: Acute (10) S/P TAVR (transcatheter aortic valve replacement): Code(s): Z95.2 - Presence of prosthetic heart valve Status: Acute (11) Anemia: Code(s): D64.9 - Anemia, unspecified Status: Acute (12) Atrial fibrillation with rapid ventricular response: Code(s): I48.91 - Unspecified atrial fibrillation Status: Acute (13) Acute respiratory failure due to COVID-19: Code(s): U07.1 - COVID-19; J96.00 - Acute respiratory failure, unspecified whether with hypoxia or hypercapnia Status: Acute (14) Pneumonia: Code(s): J18.9 - Pneumonia, unspecified organism Status: Acute Transfer Discharge Sum: Med Medications Active and Home Medications: Home Medications aspirin 81 mg tablet,delayed release 81 mg PO DAILY 06/29/19 [History Confirmed 07/01/22] carvedilol 6.25 mg tablet 6.25 mg PO Q12H 06/29/19 [History Confirmed 07/01/22] clopidogrel 75 mg tablet (Plavix) 75 mg PO DAILY 06/29/19 [History Confirmed 07/01/22] letrozole 2.5 mg tablet 2.5 mg PO QAM 06/29/19 [History Confirmed 07/01/22] potassium chloride 20 mEq tablet,extended release 20 meq PO BID 06/29/19 [History Confirmed 07/01/22] lisinopril 5 mg tablet 5 mg PO DAILY 04/28/20 [History Confirmed 07/01/22] Ca 600 mg-D3 20 mcg-mag oxide 50 dd-Ht-cfevok-manganese-boron tablet 1 tablet PO DAILY 05/20/20 [History Confirmed 07/01/22] cholecalciferol (vitamin D3) 50 mcg (2,000 unit) tablet 50 mcg PO DAILY 05/20/20 [History Confirmed 07/01/22] multivitamin 1 tablet PO DAILY 05/20/20 [History Confirmed 07/01/22] ondansetron 4 mg disintegrating tablet 4 mg PO Q6H PRN Nausea 05/20/20 [History Confirmed 07/01/22] atorvastatin 40 mg
--- NOTE | 2022-07-05 17:15 | PC.NURSE ---
Fentanyl and versed drips sent with flight team.
--- NOTE | 2022-07-05 17:15 | PCDIET ---
Report given to flight team and simona Lira RN. Patient departed for [facility]. Remains on ventilator.
[2022-07-05 18:34] LABS: Glucose Point of Care 307 mg/dl (65-105)
[2022-07-05 18:34] LABS: Glucose Point of Care 303 mg/dl (65-105)
[2022-07-07 17:33] LABS: Ionized Calcium 3.1 mg/dL (4.8-5.6)
[2022-07-08 18:03] LABS: Complement Total CH50 60 U/mL (31-60)
[2022-07-08 21:19] LABS: Haptoglobin <8 mg/dL (43-212)
[2022-07-10 13:25] LABS: Kappa\\Lambda Light Chains 1.61 (0.26-1.65); Lambda Light Chain 34.1 mg/L (5.7-26.3)
== END 2022-07-05 17:15 | disposition short-term general hospital (02) | DRG 208 ==
LOC: ANHED 08:05 → ANHIMU 09:49 → ANHICU 22:45
PROVIDERS: Internal Medicine; Internal Medicine Cardiovascular Disease; Internal Medicine Critical Care Medicine; Internal Medicine Nephrology; Nurse Practitioner; Admitting Provider Chiropractor; Emergency Provider Preventive Medicine Aerospace Medicine; PCP Family Medicine; Visit Provider Internal Medicine
DX: U07.1 COVID-19 (principal); J96.01 Acute respiratory failure with hypoxia; A41.9 Sepsis, unspecified organism; R65.21 Severe sepsis with septic shock; J12.82 Pneumonia due to coronavirus disease 2019; I21.4 Non-ST elevation (NSTEMI) myocardial infarction; J15.9 Unspecified bacterial pneumonia; I13.0 Hypertensive heart and chronic kidney disease with heart failure and stage 1 through stage 4 chronic kidney disease, or unspecified chronic kidney disease; C79.51 Secondary malignant neoplasm of bone; J44.0 Chronic obstructive pulmonary disease with (acute) lower respiratory infection; N17.9 Acute kidney failure, unspecified; D63.1 Anemia in chronic kidney disease; C50.912 Malignant neoplasm of unspecified site of left female breast; I50.9 Heart failure, unspecified; N18.31 Chronic kidney disease, stage 3a; I45.4 Nonspecific intraventricular block; I48.91 Unspecified atrial fibrillation; M79.605 Pain in left leg; M79.604 Pain in right leg; I25.10 Atherosclerotic heart disease of native coronary artery without angina pectoris; R73.03 Prediabetes; F41.9 Anxiety disorder, unspecified; E78.5 Hyperlipidemia, unspecified; E55.9 Vitamin D deficiency, unspecified; K21.9 Gastro-esophageal reflux disease without esophagitis; Z17.0 Estrogen receptor positive status [ER+]; Z79.899 Other long term (current) drug therapy; Z86.73 Personal history of transient ischemic attack (TIA), and cerebral infarction without residual deficits; Z87.891 Personal history of nicotine dependence; Z95.2 Presence of prosthetic heart valve; Z95.5 Presence of coronary angioplasty implant and graft
CPT/HCPCS: 36415; 36430; 36569; 36600; 71045; 73110; 76775; 80048; 80053; 80202; 81001; 82010; 82330; 82375; 82533; 82550; 82565; 82570; 82728; 82805; 82948; 83010; 83036; 83050; 83605; 83615; 83735; 83880; 83883; 84100; 84145; 84156; 84295; 84300; 84460; 84484; 84540; 85014; 85018; 85025; 85049; 85055; 85380; 85610; 85652; 85730; 86038; 86140; 86160; 86162; 86334; 86850; 86900; 86901; 86923; 87040; 87070; 87081; 87205; 87502; 93005; 93306; 93970; 94002; 94003; 94640; 96365; 96366; 96367; 96374; 96375; 96376; 99285; A9270; C1751; C9113; C9803; G0378; J0248; J0282; J0456; J0692; J0696; J1100; J1644; J1815; J1940; J2250; J2270; J2370; J2405; J2930; J3010; J3370; J7030; J7040; J7050; J7060; J7131; P9016; U0003; U0005